=== PATIENT | female | born 1985 | race Caucasian/White ===

== ENCOUNTER 2016-09-24 15:19 | Emergency (ER) | payer MEDICARE, MEDICAID ==
[2016-09-24 16:19] VITALS: O2SAT 98
[2016-09-24] MEDS ORDERED: FLUCONAZOLE 100 MG TAB PO ONE (16:19)
--- NOTE | 2016-09-24 16:22 | ED.PDOC ---
History of Present Illness - General Chief Complaint: Skin/Abrasion/Tear Time Seen by Provider: 09/24/16 16:19 Source: patient Exam Limitations: no limitations - History of Present Illness Initial Comments: the patient is a 31-year-old female presenting to the emergency room secondary to perineal rash present for the last week to 2 weeks. She has been trying different topical remedies without much relief. She reports mild vaginal discharge. She has not been sexually active in 2 years. No history of HSV. Rash is mildly pruritic. Mild burning with hot water. Physical exam shows the rash to be quite extensive in the perineum. There did appear to be some small satellite lesions. Rash is not weeping at this time. No blisters. No evidence of abscess or deeper cellulitis. Vaginal discharge appears to be minimal. The patient is overweight. She denies being a diabetic. Timing/Duration: 1 week Severity: mild Improving Factors: nothing Worsening Factors: nothing Associated Symptoms: denies symptoms Allergies/Adverse Reactions: Allergies NO KNOWN ALLERGY Allergy (Verified 05/10/16 15:52) Home Medications: Ambulatory Orders Fluconazole 150 mg PO DAILY #3 tab 09/24/16 Naproxen 250 mg PO BID 09/24/16 Tramadol HCl 50 mg PO BID 09/24/16 Review of Systems - Review of Systems Constitutional: States: no symptoms reported EENTM: States: no symptoms reported Respiratory: States: no symptoms reported Cardiology: States: no symptoms reported Gastrointestinal/Abdominal: States: no symptoms reported Genitourinary: States: see HPI Musculoskeletal: States: no symptoms reported Skin: States: see HPI Neurological: States: no symptoms reported All other Systems: No Change from Baseline Past Medical History (General) - Patient Medical History Hx Seizures: No Hx Stroke: No Hx Dementia: No Hx Asthma: No Hx of COPD: No Hx Cardiac Disorders: No Hx Congestive Heart Failure: No Hx Pacemaker: No Hx Hypertension: No Hx Thyroid Disease: No Hx Diabetes: No Hx Gastroesophageal Reflux: Yes Hx Renal Disease: No Hx Cancer: No Hx of HIV: No Hx Hepatitis C: No Hx MRSA: No MRSA Source:: Wound Surgical History: cholecystectomy - Vaccination History Hx Tetanus, Diphtheria Vaccination: No Hx Influenza Vaccination: Yes Hx Pneumococcal Vaccination: No - Social History Hx Tobacco Use: No Hx Chewing Tobacco Use: No Hx Alcohol Use: No Hx Substance Use: No Hx Substance Use Treatment: No Hx Depression: No Feels Threatened In Home Enviroment: No Feels Threatened In a Relationship: No Hx Physical Abuse: No Hx Emotional Abuse: No Hx Suspected Abuse: No - Activities of Daily Living Hospice Agency (if applicable):: None - Female History Patient is a Female of Child Bearing Age (10 -59 yrs old): Yes Hx Last Menstrual Period: 05/10/14 Patient : No Family Medical History - Family History Mother Family History: Unknown Living Status: Unknown Hx Family;Other: adopted Physical Exam - Physical Exam General Appearance: Alert, Comfortable, No apparent distress Eye Exam: bilateral normal Ears, Nose, Throat: normal ENT inspection, normal pharynx Neck: full range of motion, supple, normal inspection Respiratory: chest non-tender, lungs clear, normal breath sounds, no respiratory distress, no accessory muscle use Cardiovascular/Chest: normal peripheral pulses, regular rate, rhythm, no edema Peripheral Pulses: radial,right: 2+, radial,left: 2+ Gastrointestinal/Abdominal: non tender, soft - morbidly obese Rectal Exam: deferred, other - perineum shows rashes described in history of present illness. Back Exam: normal inspection Extremity: normal range of motion, non-tender, normal inspection, no pedal edema , normal capillary refill Neurologic: alert, normal mood/affect, oriented x 3 Skin Exam: normal color - with the exception of the rash as described above Comments: Vital Signs - 24 hr 09/24/16 16:07 Temperature 97.8 F Pulse Rate [L 106 H Arm] Respiratory 18 Rate Blood Pressure 120/80 [L Arm] O2 Sat by Pulse 98 Oximetry Progress - Progress Progress: 09/24/16 16:23 the patient is a 31-year-old female presenting with what is most likely predominantly aching rash in the perineal area and lower body folds. There does appear at least to be some fungal component. She'll be placed on Diflucan for 3 days. She needs to obtain some topical Aquaphor and apply 2-3 times daily to the affected areas. Warnings are given for any worsening. She needs to follow-up with her primary care doctor later this week. Anticipate at least 2 weeks to clear completely. 09/24/16 16:25 Departure - Departure Clinical Impression: Candidal intertrigo Disposition: Discharge to Home or Self Care Condition: Fair Departure Forms: ED Discharge - Pt. Copy, Patient Portal Self Enrollment Instructions: DI for Rash Diet: regular diet Activity: increase activity as tolerated Referrals: Ras Alcala MD [Primary Care Provider] - 1-5 Days Prescriptions: Fluconazole 150 mg PO DAILY #3 tab Home Medications: Ambulatory Orders Fluconazole 150 mg PO DAILY #3 tab 09/24/16 Naproxen 250 mg PO BID 09/24/16 Tramadol HCl 50 mg PO BID 09/24/16 Additional Instructions: the patient is a 31-year-old female presenting with what is most likely predominantly aching rash in the perineal area and lower body folds. There does appear at least to be some fungal component. She'll be placed on Diflucan for 3 days. She needs to obtain some topical Aquaphor and apply 2-3 times daily to the affected areas. Warnings are given for any worsening. She needs to follow-up with her primary care doctor later this week. Anticipate at least 2 weeks to clear completely.
[2016-09-24 16:52] VITALS: BP 116/72; TEMP 97.2
== END 2016-09-24 16:51 | disposition home or self-care (01) ==
LOC: ER 15:19
DX: B37.2 Candidiasis of skin and nail (principal); K21.9 Gastro-esophageal reflux disease without esophagitis

== ENCOUNTER 2018-01-25 18:17 | Emergency (ER) | payer MEDICARE, MEDICAID ==
[2018-01-25 18:38] VITALS: BP 153/103; TEMP 98.2; O2SAT 96
--- NOTE | 2018-01-25 18:38 | ED.PDOC ---
History of Present Illness - General Chief Complaint: ENT Problem Stated Complaint: Sore throat, jaw pain, cough Time Seen by Provider: 01/25/18 18:19 Source: patient Exam Limitations: no limitations - History of Present Illness Initial Comments: the patient is a 32-year-old female presenting to the emergency room secondary to a sore throat along with a runny nose and a mild cough as well as bilateral jaw pain for the last 24-48 hours. No shortness of breath. No sick. Near syncope. No productive cough. No chest pain. Timing/Duration: 24 hours Severity: mild Worsening Factors: nothing Allergies/Adverse Reactions: Allergies NO KNOWN ALLERGY Allergy (Verified 05/10/16 15:52) Home Medications: Ambulatory Orders Fluconazole 150 mg PO DAILY #3 tab 09/24/16 Naproxen 250 mg PO BID 09/24/16 Tramadol HCl 50 mg PO BID 09/24/16 Review of Systems - Review of Systems Constitutional: States: malaise EENTM: States: nose congestion, throat pain Respiratory: States: cough Cardiology: States: no symptoms reported Gastrointestinal/Abdominal: States: no symptoms reported Genitourinary: States: no symptoms reported Musculoskeletal: States: no symptoms reported Skin: States: no symptoms reported Neurological: States: no symptoms reported Endocrine: States: no symptoms reported All other Systems: No Change from Baseline Past Medical History (General) - Patient Medical History Hx Seizures: No Hx Stroke: No Hx Dementia: No Hx Asthma: No Hx of COPD: No Hx Cardiac Disorders: No Hx Congestive Heart Failure: No Hx Pacemaker: No Hx Hypertension: No Hx Thyroid Disease: No Hx Diabetes: No Hx Gastroesophageal Reflux: Yes Hx Renal Disease: No Hx Cancer: No Hx of HIV: No Hx Hepatitis C: No Hx MRSA: No MRSA Source:: Wound Surgical History: other - Vaccination History Hx Tetanus, Diphtheria Vaccination: No Hx Influenza Vaccination: Yes Hx Pneumococcal Vaccination: No - Social History Hx Tobacco Use: No Hx Chewing Tobacco Use: No Hx Alcohol Use: No Hx Substance Use: No Hx Substance Use Treatment: No Hx Depression: No Hx Physical Abuse: No Hx Emotional Abuse: No Hx Suspected Abuse: No - Female History Hx Last Menstrual Period: 05/10/14 Patient : No Family Medical History - Family History Mother Family History: Unknown Living Status: Unknown Hx Family;Other: adopted Physical Exam - Physical Exam General Appearance: Alert, Comfortable, No apparent distress Eye Exam: bilateral normal Ears, Nose, Throat: hearing grossly normal, nasal congestion, pharyngeal erythema Neck: other - he does have mild anterior cervical chain lymphadenopathy. Respiratory: no respiratory distress, no accessory muscle use Cardiovascular/Chest: normal peripheral pulses, no edema Peripheral Pulses: radial,right: 2+, radial,left: 2+ Gastrointestinal/Abdominal: other - obese Rectal Exam: deferred Extremity: normal range of motion, non-tender, normal capillary refill Neurologic: medical scheduler II-XII nml as tested, alert, normal mood/affect, oriented x 3 Skin Exam: normal color Comments: Vital Signs - 24 hr 01/25/18 18:31 Temperature 98.2 F Pulse Rate [ 94 H left brachial] Respiratory 20 Rate Blood Pressure 153/103 [left brachial] O2 Sat by Pulse 96 Oximetry Progress - Progress Progress: 01/25/18 18:38 the patient's a 32-year-old female presenting with what appears to be a viral rhinopharyngitis. Motrin and Chloraseptic can help her with pain. She needs to keep herself well-hydrated. She should expect symptoms to last another couple of days. ER warnings were given for any significant worsening. Keep routine follow-up with primary care doctor otherwise. Departure - Departure Clinical Impression: Rhinopharyngitis Disposition: Discharge to Home or Self Care Condition: Fair Departure Forms: ED Discharge - Pt. Copy, Patient Portal Self Enrollment Instructions: DI for Common Cold Diet: regular diet Activity: increase activity as tolerated Referrals: Ras Alcala MD [Primary Care Provider] - 1-2 Weeks Home Medications: Ambulatory Orders Fluconazole 150 mg PO DAILY #3 tab 09/24/16 Naproxen 250 mg PO BID 09/24/16 Tramadol HCl 50 mg PO BID 09/24/16 Additional Instructions: the patient's a 32-year-old female presenting with what appears to be a viral rhinopharyngitis. Motrin and Chloraseptic can help her with pain. She needs to keep herself well-hydrated. She should expect symptoms to last another couple of days. ER warnings were given for any significant worsening. Keep routine follow-up with primary care doctor otherwise.
[2018-01-25] MEDS ORDERED: IBUPROFEN 200 MG TAB PO ONE (18:44)
== END 2018-01-25 18:54 | disposition home or self-care (01) ==
LOC: ER 18:17
DX: J00 Acute nasopharyngitis [common cold] (principal); K21.9 Gastro-esophageal reflux disease without esophagitis

== ENCOUNTER → 2018-03-19 | Outpatient (CLI) | payer OTHER, MEDICAID | LOC: GMAE 17:09 | PROVIDERS: ATTEND Family Medicine | DX: G25.81 Restless legs syndrome (principal) ==

== ENCOUNTER 2018-05-15 16:17 | Emergency (ER) | payer MEDICARE, MEDICAID ==
--- NOTE | 2018-05-15 16:42 | ED.PDOC ---
History of Present Illness - General Chief Complaint: General Time Seen by Provider: 05/15/18 16:35 Source: patient Exam Limitations: no limitations - History of Present Illness Initial Comments: SHE IS HERE BECAUSE OF PELVIC CRAMPS AND DESIRES A TEST. HER LMP WAS 04/29, NORMAL AND EXPECTED PERIOD. Timing/Duration: 1 week Severity: mild Improving Factors: nothing Worsening Factors: nothing Associated Symptoms: denies symptoms Allergies/Adverse Reactions: Allergies NO KNOWN ALLERGY Allergy (Verified 05/10/16 15:52) Home Medications: Ambulatory Orders Fluconazole 150 mg PO DAILY #3 tab 09/24/16 Naproxen 250 mg PO BID 09/24/16 Tramadol HCl 50 mg PO BID 09/24/16 Naproxen [Naprosyn] 250 mg PO BID #10 tab 05/15/18 Review of Systems - Review of Systems Constitutional: States: no symptoms reported EENTM: States: no symptoms reported Respiratory: States: no symptoms reported Cardiology: States: no symptoms reported Gastrointestinal/Abdominal: States: no symptoms reported Genitourinary: States: other - PELVIC CRAMPS Musculoskeletal: States: no symptoms reported Skin: States: no symptoms reported Neurological: States: no symptoms reported Endocrine: States: no symptoms reported Hematologic/Lymphatic: States: no symptoms reported All other Systems: Reviewed and Negative Past Medical History (General) - Patient Medical History Hx Seizures: No Hx Stroke: No Hx Dementia: No Hx Asthma: No Hx of COPD: No Hx Cardiac Disorders: No Hx Congestive Heart Failure: No Hx Pacemaker: No Hx Hypertension: No Hx Thyroid Disease: No Hx Diabetes: No Hx Gastroesophageal Reflux: Yes Hx Renal Disease: No Hx Cancer: No Hx of HIV: No Hx Hepatitis C: No Hx MRSA: No MRSA Source:: Wound - Vaccination History Hx Tetanus, Diphtheria Vaccination: No Hx Influenza Vaccination: No Hx Pneumococcal Vaccination: No - Social History Hx Tobacco Use: No Hx Chewing Tobacco Use: No Hx Alcohol Use: No Hx Substance Use: No Hx Substance Use Treatment: No Hx Depression: No Hx Physical Abuse: No Hx Emotional Abuse: No Hx Suspected Abuse: No - Female History Patient is a Female of Child Bearing Age (10 -59 yrs old): Yes Hx Last Menstrual Period: 05/10/14 Patient : No Family Medical History - Family History Mother Family History: Unknown Living Status: Unknown Hx Family;Other: adopted Physical Exam - Physical Exam General Appearance: Alert, Well Developed, Well Hydrated Eye Exam: bilateral normal Ears, Nose, Throat: hearing grossly normal Neck: non-tender, full range of motion, supple Respiratory: chest non-tender, lungs clear, no respiratory distress, no accessory muscle use Cardiovascular/Chest: normal peripheral pulses, no edema, no gallop, no JVD, no murmur Gastrointestinal/Abdominal: soft, no organomegaly, no pulsatile mass, other - NO GUARDING AND NO REBOUND Rectal Exam: deferred Back Exam: normal inspection Extremity: normal range of motion Neurologic: alert, normal mood/affect, oriented x 3 Skin Exam: normal color Lymphatic: no adenopathy Progress - Results/Orders Results/Orders: TEST IS NEGATIVE. Departure - Departure Clinical Impression: Pelvic cramping Time of Disposition: 17:19 Disposition: Discharge to Home or Self Care Departure Forms: ED Discharge - Pt. Copy, Patient Portal Self Enrollment Diet: resume usual diet Referrals: CAROL KENT MD [Primary Care Provider] - 1-2 Weeks Prescriptions: Naproxen [Naprosyn] 250 mg PO BID #10 tab Home Medications: Ambulatory Orders Fluconazole 150 mg PO DAILY #3 tab 09/24/16 Naproxen 250 mg PO BID 09/24/16 Tramadol HCl 50 mg PO BID 09/24/16 Naproxen [Naprosyn] 250 mg PO BID #10 tab 05/15/18
[2018-05-15 16:48] VITALS: BP 144/95; TEMP 97.2; O2SAT 98
== END 2018-05-15 17:29 | disposition home or self-care (01) ==
LOC: ER 16:17
DX: R10.2 Pelvic and perineal pain (principal); K21.9 Gastro-esophageal reflux disease without esophagitis; Z32.02 Encounter for pregnancy test, result negative

== ENCOUNTER 2018-05-25 15:22 | Emergency (ER) | payer MEDICARE, MEDICAID ==
--- NOTE | 2018-05-25 17:25 | RAD ---
EXAM DESCRIPTION: Facial Bones CLINICAL HISTORY: 32 years Female, FALL COMPARISON: None. TECHNIQUE: Ramirez, AP, bilateral lateral views FINDINGS: Right nasal septal deviation. No fractures identified. No sinus opacification. IMPRESSION: No fractures identified. If more sensitive imaging is needed, computed tomography would be useful Electronically signed by: Navid Bach 05/25/2018 5:24 PM CDT
--- NOTE | 2018-05-25 17:48 | ED.PDOC ---
History of Present Illness - General Chief Complaint: Trauma Stated Complaint: fall Time Seen by Provider: 05/25/18 17:47 Source: patient Exam Limitations: no limitations - History of Present Illness Initial Comments: Jennifer New 32 y/o female stated slipped and fell off her front porch today hitting left side of her face on the concrete noted swelling right side face with dull pain.No LOC,no diplopia,no blurry vision,remembers incident. Denies neck,shoulder hip pains;no nosebleeds Occurred: just prior to arrival Severity: moderate Pain Location: face Method of Injury: fall Improving Factors: nothing Worsening Factors: nothing Loss of Consciousness: no loss of consciousness Associated Symptoms (Fall): denies symptoms Allergies/Adverse Reactions: Allergies NO KNOWN ALLERGY Allergy (Verified 05/10/16 15:52) Home Medications: Ambulatory Orders Fluconazole 150 mg PO DAILY #3 tab 09/24/16 Naproxen 250 mg PO BID 09/24/16 Tramadol HCl 50 mg PO BID 09/24/16 Naproxen [Naprosyn] 250 mg PO BID #10 tab 05/15/18 Review of Systems - Review of Systems Constitutional: States: no symptoms reported EENTM: States: see HPI Respiratory: States: no symptoms reported Cardiology: States: no symptoms reported Gastrointestinal/Abdominal: States: no symptoms reported Genitourinary: States: no symptoms reported Musculoskeletal: States: no symptoms reported Skin: States: no symptoms reported Neurological: States: no symptoms reported Past Medical History (General) - Patient Medical History Hx Seizures: No Hx Stroke: No Hx Dementia: No Hx Asthma: No Hx of COPD: No Hx Cardiac Disorders: No Hx Congestive Heart Failure: No Hx Pacemaker: No Hx Hypertension: No Hx Thyroid Disease: No Hx Diabetes: No Hx Gastroesophageal Reflux: Yes Hx Renal Disease: No Hx Cancer: No Hx of HIV: No Hx Hepatitis C: No Hx MRSA: No MRSA Source:: Wound Surgical History: cholecystectomy, other - btl,bilateral fimbriectomy - Vaccination History Hx Tetanus, Diphtheria Vaccination: No Hx Influenza Vaccination: No Hx Pneumococcal Vaccination: No - Social History Hx Tobacco Use: No Hx Chewing Tobacco Use: No Hx Alcohol Use: No Hx Substance Use: No Hx Substance Use Treatment: No Hx Depression: No Hx Physical Abuse: No Hx Emotional Abuse: No Hx Suspected Abuse: No - Female History Hx Last Menstrual Period: 05/10/14 Patient : No Family Medical History - Family History Mother Family History: Unknown Living Status: Unknown Hx Family;Other: adopted Physical Exam - Physical Exam General Appearance: Alert, Comfortable, No apparent distress Head Injury: no evidence of injury, other - moderate swelling right side cheek Eye Exam: bilateral normal, bilateral other - clear eyegrounds bilaterally; PERRL.EOMI ENT Exam: hearing grossly normal, no evidence of ENT injury, no dental injury Neck Exam: non-tender, full range of motion, normal alignment, normal inspection Cardiovascular/Respiratory: regular rate, rhythm, no M/R/G, normal peripheral pulses, no respiratory distress Gastrointestinal/Abdominal: non tender, soft, no organomegaly Extremity Exam: no evidence of injury, normal range of motion, non-tender, no pedal edema, pelvis stable Neurologic: no motor/sensory deficits, alert, oriented x 3 Skin Exam: normal color, warm/dry - [place] Coma Score Best Eye Response ([place]): (4) open spontaneously Best Verbal Response ([place]): (5) oriented Best Motor Response ([place]): (6) obeys commands [place] Total: 15 Progress - EKG/XRAY/CT XRAY: facial bones - no fractures Departure - Departure Clinical Impression: Fall at home Qualifiers: Encounter type: initial encounter Qualified Code(s): W19.XXXA - Unspecified fall, initial encounter; Y92.009 - Unspecified place in unspecified non- institutional (private) residence as the place of occurrence of the external cause; Y92.009 - Unspecified place in unspecified non-institutional (private) residence as the place of occurrence of the external cause Contusion of face Qualifiers: Encounter type: initial encounter Qualified Code(s): S00.83XA - Contusion of other part of head, initial encounter Time of Disposition: 18:01 Disposition: Discharge to Home or Self Care Condition: Fair Departure Forms: ED Discharge - Pt. Copy, Patient Portal Self Enrollment Instructions: Contusion (DC), Taking Care of Bruises Referrals: CAROL KENT MD [Primary Care Provider] - 1-2 Weeks Home Medications: Ambulatory Orders Fluconazole 150 mg PO DAILY #3 tab 09/24/16 Naproxen 250 mg PO BID 09/24/16 Tramadol HCl 50 mg PO BID 09/24/16 Naproxen [Naprosyn] 250 mg PO BID #10 tab 05/15/18 Additional Instructions: continue with current medications;Ice pack to affected area 10 minutes 3 x a day during waking hours only until better.May take Aleve (over the counter)1-2 tablets am/pm for pain as needed
[2018-05-25] MEDS ORDERED: IBUPROFEN 200 MG TAB PO ONE (18:08)
[2018-05-25 18:09] VITALS: BP 118/86; TEMP 97.5; O2SAT 99
== END 2018-05-25 18:10 | disposition home or self-care (01) ==
LOC: ER 15:22
DX: S00.83XA Contusion of other part of head, initial encounter (principal); K21.9 Gastro-esophageal reflux disease without esophagitis; Z79.899 Other long term (current) drug therapy; W01.0XXA Fall on same level from slipping, tripping and stumbling without subsequent striking against object, initial encounter; Y92.008 Other place in unspecified non-institutional (private) residence as the place of occurrence of the external cause

== ENCOUNTER 2018-05-27 09:46 | Emergency (ER) | payer OTHER, MEDICAID ==
[2018-05-27 10:29] VITALS: TEMP 96.7; O2SAT 100
[2018-05-27] MEDS ORDERED: CLINDAMYCIN HCL CAP 150 MG CAP PO ONE (10:32)
[2018-05-27] MEDS ORDERED: KETOROLAC TROMETHAMINE INJ 60 MG/2 ML VIAL IM ONE (10:32)
--- NOTE | 2018-05-27 10:36 | ED.PDOC ---
History of Present Illness - General Chief Complaint: Dental/Mouth Stated Complaint: R facial swelling Time Seen by Provider: 05/27/18 10:32 Source: patient Exam Limitations: no limitations - History of Present Illness Initial Comments: patient comes in todaywith worsening of right-sided tooth pain with swelling of her face radiating up to the inside of her cheek. Patient states she's had tooth problems for a long time but never had problems with the specific side. On Saturday she noticed swelling with redness and heat felt at her cheek. She has severe tooth pain that [id number] medication is not helping. Patient has not yet seen a dentist for it. She denies any fever or chills but has had some nausea but no emesis. She otherwise healthy and has no past medical history. She has no known drug allergies and she does not smoke, drink, or take illicit substances. She takes no [id number] medications or supplements. Timing/Duration: other EENT Location: dental Prearrival Treatment: over the counter meds Improving Factors: nothing Worsening Factors: eating Associated Symptoms: other - nausea Allergies/Adverse Reactions: Allergies NO KNOWN ALLERGY Allergy (Verified 05/10/16 15:52) Home Medications: Ambulatory Orders Tramadol HCl 50 mg PO BID 09/24/16 Naproxen [Naprosyn] 250 mg PO BID #10 tab 05/15/18 Clindamycin HCl 300 mg PO TID #21 cap 05/27/18 Esomeprazole Magnesium [Esomeprazole Magnesium] 40 mg PO DAILY 05/27/18 Meloxicam [Meloxicam] 15 mg PO DAILY 05/27/18 Pramipexole Dihydrochloride [Pramipexole Dihydrochlori] 0.25 mg PO BID 05/27/18 Review of Systems - Review of Systems Constitutional: States: no symptoms reported. Denies: chills, fever, weakness EENTM: States: see HPI Respiratory: States: no symptoms reported Cardiology: States: no symptoms reported Gastrointestinal/Abdominal: States: nausea Past Medical History (General) - Patient Medical History Hx Seizures: No Hx Stroke: No Hx Dementia: No Hx Asthma: No Hx of COPD: No Hx Cardiac Disorders: No Hx Congestive Heart Failure: No Hx Pacemaker: No Hx Hypertension: No Hx Thyroid Disease: No Hx Diabetes: No Hx Gastroesophageal Reflux: Yes Hx Renal Disease: No Hx Cancer: No Hx of HIV: No Hx Hepatitis C: No Hx MRSA: No MRSA Source:: Wound - Vaccination History Hx Tetanus, Diphtheria Vaccination: No Hx Influenza Vaccination: No Hx Pneumococcal Vaccination: No - Social History Hx Tobacco Use: No Hx Chewing Tobacco Use: No Hx Alcohol Use: No Hx Substance Use: No Hx Substance Use Treatment: No Hx Depression: No Hx Physical Abuse: No Hx Emotional Abuse: No Hx Suspected Abuse: No - Female History Hx Last Menstrual Period: 05/10/14 Patient : No Family Medical History - Family History Mother Family History: Unknown Living Status: Unknown Hx Family;Other: adopted Physical Exam - Physical Exam General Appearance: Alert, Comfortable Eye Exam: bilateral normal Ear Exam: bilateral ear: auricle normal, canal normal, TM normal Throat Exam: other - broken teeth noted on the upper and lower right side with cavitary lesions bilaterally. The second molar on the right side superiorly has redness but no fluctuance and no purulence. Tenderness to palpation with reproduction of pain. Patient does have some swelling of the right anterior cervical lymph nodes and the cheek without fluctuance or point tenderness. Neck: non-tender, full range of motion, supple Cardiovascular/Respiratory: regular rate, rhythm, no M/R/G, normal peripheral pulses, normal breath sounds, no respiratory distress Abdominal Exam: other - normal bowel sounds Progress - Progress Progress: discussed with patient that although I do not feel any fluctuance she may have an early dental abscess based on a exam and presentation. We started her on clindamycin and asked her to see a dentist. Toradol was given here. 05/27/18 10:39 Departure - Departure Clinical Impression: Dental abscess Disposition: Discharge to Home or Self Care Condition: Good Departure Forms: ED Discharge - Pt. Copy, Patient Portal Self Enrollment Referrals: CAROL KENT MD [Primary Care Provider] - 1-2 Weeks Prescriptions: Clindamycin HCl 300 mg PO TID #21 cap Home Medications: Ambulatory Orders Tramadol HCl 50 mg PO BID 09/24/16 Naproxen [Naprosyn] 250 mg PO BID #10 tab 05/15/18 Clindamycin HCl 300 mg PO TID #21 cap 05/27/18 Esomeprazole Magnesium [Esomeprazole Magnesium] 40 mg PO DAILY 05/27/18 Meloxicam [Meloxicam] 15 mg PO DAILY 05/27/18 Pramipexole Dihydrochloride [Pramipexole Dihydrochlori] 0.25 mg PO BID 05/27/18 Additional Instructions: follow-up with dentist in 2-3 days. Return to emergency room for increasing swelling,temperature greater than 101, or worsening of symptoms. May take over- the-counter medication but she was given at type of NSAID here and so should wait at least 6 hours before using that class of medications including her naproxen again. Patient may take Tylenol however.
[2018-05-27 10:52] VITALS: BP 141/105
== END 2018-05-27 10:52 | disposition home or self-care (01) ==
LOC: ER 09:46
DX: K04.7 Periapical abscess without sinus (principal); K02.9 Dental caries, unspecified; S02.5XXA Fracture of tooth (traumatic), initial encounter for closed fracture; K21.9 Gastro-esophageal reflux disease without esophagitis; X58.XXXA Exposure to other specified factors, initial encounter; Y92.9 Unspecified place or not applicable

== ENCOUNTER 2018-06-02 12:54 | Emergency (ER) | payer OTHER, MEDICAID ==
[2018-06-02 13:29] VITALS: TEMP 96.3
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
[2018-06-02 17:32] VITALS: BP 129/79; O2SAT 99
== END 2018-06-02 17:18 | disposition home or self-care (01) ==
LOC: ER 12:54
DX: S00.11XA Contusion of right eyelid and periocular area, initial encounter (principal); H11.31 Conjunctival hemorrhage, right eye; K02.9 Dental caries, unspecified; K21.9 Gastro-esophageal reflux disease without esophagitis; Z79.899 Other long term (current) drug therapy; Y04.0XXA Assault by unarmed brawl or fight, initial encounter; Y07.03 Male partner, perpetrator of maltreatment and neglect; Y92.009 Unspecified place in unspecified non-institutional (private) residence as the place of occurrence of the external cause

== ENCOUNTER 2018-06-11 22:14 | Emergency (ER) | payer OTHER, MEDICAID ==
--- NOTE | 2018-06-11 22:42 | ED.PDOC ---
History of Present Illness - General Chief Complaint: Skin/Abrasion/Tear Stated Complaint: rash on arm and blister on lip Time Seen by Provider: 06/11/18 22:39 Source: patient Exam Limitations: no limitations - History of Present Illness Initial Comments: rash on both forearms x 4 days with itching Timing/Duration: intermittent Severity: mild Location: extremities Improving Factors: nothing Worsening Factors: nothing Associated Symptoms: itching, rash Allergies/Adverse Reactions: Allergies NO KNOWN ALLERGY Allergy (Verified 05/10/16 15:52) Home Medications: Ambulatory Orders Tramadol HCl 50 mg PO BID 09/24/16 Naproxen [Naprosyn] 250 mg PO BID #10 tab 05/15/18 Clindamycin HCl 300 mg PO TID #21 cap 05/27/18 Esomeprazole Magnesium [Esomeprazole Magnesium] 40 mg PO DAILY 05/27/18 Meloxicam [Meloxicam] 15 mg PO DAILY 05/27/18 Pramipexole Dihydrochloride [Pramipexole Dihydrochlori] 0.25 mg PO BID 05/27/18 Mometasone Furoate [Elocon] 0.1 % EX QAM #15 gm 06/11/18 hydrOXYzine HCl [Atarax] 25 mg PO Q6HR PRN #15 tab 06/11/18 Review of Systems - Review of Systems Constitutional: States: no symptoms reported. Denies: chills, fever EENTM: Denies: nose congestion Respiratory: Denies: cough Cardiology: States: no symptoms reported Gastrointestinal/Abdominal: States: no symptoms reported Genitourinary: States: no symptoms reported Musculoskeletal: Denies: no symptoms reported Skin: States: rash Neurological: Denies: numbness, paresthesia Endocrine: States: no symptoms reported Hematologic/Lymphatic: States: no symptoms reported Past Medical History (General) - Patient Medical History Hx Seizures: No Hx Stroke: No Hx Dementia: No Hx Asthma: No Hx of COPD: No Hx Cardiac Disorders: No Hx Congestive Heart Failure: No Hx Pacemaker: No Hx Hypertension: No Hx Thyroid Disease: No Hx Diabetes: No Hx Gastroesophageal Reflux: Yes Hx Renal Disease: No Hx Cancer: No Hx of HIV: No Hx Hepatitis C: No Hx MRSA: No MRSA Source:: Wound - Vaccination History Hx Tetanus, Diphtheria Vaccination: No Hx Influenza Vaccination: No Hx Pneumococcal Vaccination: No - Social History Hx Tobacco Use: No Hx Chewing Tobacco Use: No Hx Alcohol Use: No Hx Substance Use: No Hx Substance Use Treatment: No Hx Depression: No Hx Physical Abuse: No Hx Emotional Abuse: No Hx Suspected Abuse: No - Female History Hx Last Menstrual Period: 05/31/18 Patient : No Family Medical History - Family History Mother Family History: Unknown Living Status: Unknown Hx Family;Other: adopted Physical Exam - Physical Exam General Appearance: Alert Eyes, Ears, Nose, Throat Exam: PERRL/EOMI, TMs normal, pharynx normal Neck: non-tender, full range of motion, normal inspection Skin Exam: warm/dry, normal color Skin Problem Location: other - both forearms Skin Character: papules, vesicular Lymphatic: no adenopathy Departure - Departure Clinical Impression: Atopic dermatitis Qualifiers: Atopic dermatitis type: atopic neurodermatitis Qualified Code(s): L20.81 - Atopic neurodermatitis Disposition: Discharge to Home or Self Care Condition: Fair Departure Forms: ED Discharge - Pt. Copy, Patient Portal Self Enrollment Referrals: CAROL KENT MD [Primary Care Provider] - 1-2 Weeks Prescriptions: hydrOXYzine HCl [Atarax] 25 mg PO Q6HR PRN #15 tab PRN Reason: For Itching Mometasone Furoate [Elocon] 0.1 % EX QAM #15 gm Home Medications: Ambulatory Orders Tramadol HCl 50 mg PO BID 09/24/16 Naproxen [Naprosyn] 250 mg PO BID #10 tab 05/15/18 Clindamycin HCl 300 mg PO TID #21 cap 05/27/18 Esomeprazole Magnesium [Esomeprazole Magnesium] 40 mg PO DAILY 05/27/18 Meloxicam [Meloxicam] 15 mg PO DAILY 05/27/18 Pramipexole Dihydrochloride [Pramipexole Dihydrochlori] 0.25 mg PO BID 05/27/18 Mometasone Furoate [Elocon] 0.1 % EX QAM #15 gm 06/11/18 hydrOXYzine HCl [Atarax] 25 mg PO Q6HR PRN #15 tab 06/11/18
[2018-06-11 22:44] VITALS: BP 137/87; TEMP 97.3; O2SAT 98
[2018-06-11] MEDS ORDERED: hydrOXYzine HCl 25 MG TAB PO ONE (23:24)
== END 2018-06-11 23:32 | disposition home or self-care (01) ==
LOC: ER 22:14
DX: L20.81 Atopic neurodermatitis (principal); K21.9 Gastro-esophageal reflux disease without esophagitis; Z79.899 Other long term (current) drug therapy

== ENCOUNTER 2018-06-20 16:02 | Emergency (ER) | payer OTHER, MEDICAID ==
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
--- NOTE | 2018-06-20 17:01 | CT ---
EXAM DESCRIPTION: Head CLINICAL HISTORY: HEAD INJURY COMPARISON: Previous CT of the brain May 02, 2007 TECHNIQUE: Noncontrast head CT was performed with routine protocol. FINDINGS: Normal mendez-white matter differentiation. Ventricles and sulci are normal for age. No high density hemorrhage, focal edema or shift of the midline. No sulcal effacement. Normal orbital contents. Basilar cisterns appear clear. Intact calvarium with no fracture or lytic lesion. Normal aeration of tympanic cavities and mastoid air cells. No fluid levels in the paranasal sinuses. Skull base appears intact. Symmetrical internal auditory canals. Coronal and sagittal reformatted images confirm the findings. No change compared to previous study. IMPRESSION: No acute intracranial pathologic process. This exam was performed according to our departmental dose-optimization program, which includes automated exposure control, adjustment of the mA and/or kV according to patient size and/or use of iterative reconstruction technique. Total DLP equals 859.97 mGycm. Electronically signed by: Braxton Bose MD 06/20/2018 4:59 PM CDT
[2018-06-20 17:35] VITALS: BP 120/88; O2SAT 98
== END 2018-06-20 17:16 | disposition home or self-care (01) ==
LOC: ER 16:02
DX: G44.319 Acute post-traumatic headache, not intractable (principal); K21.9 Gastro-esophageal reflux disease without esophagitis; Z79.899 Other long term (current) drug therapy

== ENCOUNTER → 2018-07-08 | Outpatient (CLI) | payer OTHER, MEDICAID ==
--- NOTE | 2018-07-08 17:23 | MRI ---
EXAM DESCRIPTION: Brain w/o Contrast: MRI. CLINICAL HISTORY: HEADACHE COMPARISON: None. TECHNIQUE: Multiplanar, high-field MRI unit, multiple diffusion sequences, multiple conventional sequences without contrast. FINDINGS: Normal FLAIR and T2-weighted signal in the periventricular white matter and mendez-white matter junctions of the cerebral hemispheres. . No hemorrhage, no cerebral edema, no diffusion restriction. Normal signal in the bilateral basal ganglia. Normal signal in the brainstem and cerebellar hemispheres. No hemorrhage, no cerebral edema, no diffusion restriction.. Concordance of the diffusion and non-diffusion sequences with no diffusion restriction. Cortical sulci, ventricles, and other CSF spaces, and the subdural spaces are normally configured for the patient's age. No effacement or displacement. No midline shift. No extra-axial hemorrhage. Normal flow signal void in the major vessels of the lummi Panchal, and the venous sinuses. IACs are symmetric bilaterally. Minimal fluid signal in the inferior right mastoid air cells. No mass effect in the bilateral cerebellopontine angles. Pituitary gland occupies most of the sella. Base of the cerebellar tonsils is at the level of the foramen magnum. Minimal mucoperiosteal thickening in the paranasal sinuses. Minimal left septal deviation.. The bony calvarium is intact. IMPRESSION: 1. Unremarkable MRI scan of the brain with no intra-axial or extra-axial hemorrhage. No cerebral edema or mass effect. Normal noncontrast MRI diffusion scan diffusion with no evidence of acute or subacute infarction. 2. 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 Chronic paranasal sinus findings.. Electronically signed by: Freddy Kapoor MD 07/08/2018 5:21 PM CDT
== END ==
LOC: MRI 08:00
PROVIDERS: ATTEND Family Medicine
DX: R51 Headache (principal)

== ENCOUNTER → 2018-07-17 | Outpatient (CLI) | payer OTHER, MEDICAID ==
--- NOTE | 2018-07-17 14:17 | MRI ---
Study: MRI of the Right Knee. Indication: PAIN IN RIGHT KNEE Technique: Multiplanar, multi sequence MRI of the right knee was obtained without intravenous contrast. Comparison: None. Findings: ACL, PCL, and lateral collateral ligament complex intact. MCL is lax and bowed indicating sequela of a remote MCL sprain. No acute tear. Scattered degenerative signal change medial meniscus without tear. Lateral meniscus intact. Areas of grade 1 and 2 chondral thinning medial and lateral knee compartments. Low-grade tendinosis quadriceps tendon insertion. Patellar tendon intact. Trace lateral patellar tilt and subluxation with edema at the superolateral aspect Hoffa's fat pad. TT-TG distance measures 11 mm. Extensive subchondral marrow edema throughout the lateral and midline femoral trochlea. At their junction there is a suspected 9 mm craniocaudal by 5 mm transverse site of grade 3/4 chondral delamination and surface irregularity. Adjacent grade 2 and 3 chondrosis inferior margin lateral patellar facet noted. Moderate size knee effusion. No acute fracture. Impression: Mild degenerative signal change medial meniscus without tear. Remote MCL sprain. Grade 1 and 2 chondral thinning medial and lateral knee compartments. Low-grade tendinosis quadriceps tendon insertion. Subtle findings of patellofemoral maltracking. Grade 3/4 chondrosis lateral/midline femoral trochlea as well as grade 2-3 chondrosis lateral patellar facet. Moderate size knee effusion. Electronically signed by: Porfirio Bartholomew MD 07/17/2018 2:15 PM [facility]
== END ==
LOC: MRI 09:00
PROVIDERS: ATTEND Family Medicine
DX: S83.419A Sprain of medial collateral ligament of unspecified knee, initial encounter (principal); S76.111A Strain of right quadriceps muscle, fascia and tendon, initial encounter

== ENCOUNTER → 2018-07-24 | Outpatient (CLI) | payer OTHER, MEDICAID | LOC: GMAHI 16:55 | PROVIDERS: ATTEND Nurse Practitioner Family | DX: R00.0 Tachycardia, unspecified (principal); J02.9 Acute pharyngitis, unspecified ==

== ENCOUNTER 2018-08-08 12:20 | Emergency (ER) | payer OTHER, MEDICAID ==
[2018-08-08 12:43] VITALS: TEMP 99.3; O2SAT 98
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
--- NOTE | 2018-08-08 14:08 | RAD ---
EXAM DESCRIPTION: Knee,Left 2 or More Views CLINICAL HISTORY: FALL WITH PAIN COMPARISON: None. TECHNIQUE: 2 views left FINDINGS: Mild lateral femoral and tibial osteophyte formation is observed. No joint effusion is seen. No fracture is detected. IMPRESSION: Mild degenerative changes are observed. No fracturing is detected. Electronically signed by: Kain Hall MD 08/08/2018 2:07 PM [facility]
[2018-08-08 14:29] VITALS: BP 120/79
== END 2018-08-08 14:29 | disposition home or self-care (01) ==
LOC: ER 12:20
DX: S80.02XA Contusion of left knee, initial encounter (principal); G43.109 Migraine with aura, not intractable, without status migrainosus; R55 Syncope and collapse; X58.XXXA Exposure to other specified factors, initial encounter

== ENCOUNTER 2018-08-13 07:08 | Emergency (ER) | payer OTHER, MEDICAID ==
[2018-08-13 07:23] VITALS: BP 119/82; TEMP 97.6
--- NOTE | 2018-08-13 07:31 | ED.PDOC ---
History of Present Illness - General Chief Complaint: General Time Seen by Provider: 08/13/18 07:28 Source: patient, RN notes reviewed Exam Limitations: no limitations - History of Present Illness Initial Comments: LEFT KNEE PAIN, ONSET SEVERAL WEEKS AGO AFTER A FALL. SHE SEES DR LUX AND ON IBUPROFEN, NOT BETTER. HAS HAD THE KNEE XDS-RAYED, NO FRACTURES. Timing/Duration: other - SEVERAL WEEKS Severity: moderate Improving Factors: nothing Associated Symptoms: denies symptoms Allergies/Adverse Reactions: Allergies NO KNOWN ALLERGY Allergy (Verified 05/10/16 15:52) Home Medications: Ambulatory Orders Clindamycin HCl 300 mg PO TID #21 cap 05/27/18 Esomeprazole Magnesium [Esomeprazole Magnesium] 40 mg PO DAILY 05/27/18 Pramipexole Dihydrochloride [Pramipexole Dihydrochlori] 0.25 mg PO BEDTIME 05/27 Amitriptyline HCl [Elavil] 50 mg PO BEDTIME 08/08/18 Ibuprofen 800 mg PO TID PRN 08/08/18 Pantoprazole Sodium 40 mg PO DAILY 08/08/18 Sumatriptan Succinate [Imitrex] 25 mg PO TID PRN 08/08/18 Topiramate 50 mg PO DAILY 08/08/18 predniSONE 20 mg PO DAILY 5 Days tab 08/13/18 Review of Systems - Review of Systems Constitutional: States: no symptoms reported EENTM: States: no symptoms reported Respiratory: States: no symptoms reported Cardiology: States: no symptoms reported Gastrointestinal/Abdominal: States: no symptoms reported Genitourinary: States: no symptoms reported Musculoskeletal: States: joint pain Skin: States: no symptoms reported Neurological: States: no symptoms reported Endocrine: States: no symptoms reported Hematologic/Lymphatic: States: no symptoms reported Past Medical History (General) - Patient Medical History Hx Seizures: No Hx Stroke: No Hx Dementia: No Hx Asthma: No Hx of COPD: No Hx Cardiac Disorders: No Hx Congestive Heart Failure: No Hx Pacemaker: No Hx Hypertension: No Hx Thyroid Disease: No Hx Diabetes: No Hx Gastroesophageal Reflux: Yes Hx Renal Disease: No Hx Cancer: No Hx of HIV: No Hx Hepatitis C: No Hx MRSA: No MRSA Source:: Wound - Vaccination History Hx Tetanus, Diphtheria Vaccination: No Hx Influenza Vaccination: Yes Hx Pneumococcal Vaccination: No - Social History Hx Tobacco Use: No Hx Chewing Tobacco Use: No Hx Alcohol Use: No Hx Substance Use: No Hx Substance Use Treatment: No Hx Depression: No Hx Physical Abuse: No Hx Emotional Abuse: No Hx Suspected Abuse: No - Female History Hx Last Menstrual Period: 05/31/18 Patient : No Family Medical History - Family History Mother Family History: Unknown Living Status: Unknown Hx Family;Other: adopted Physical Exam - Physical Exam General Appearance: Alert, No apparent distress Neck: full range of motion, supple Respiratory: lungs clear Cardiovascular/Chest: regular rate, rhythm, no edema Gastrointestinal/Abdominal: normal bowel sounds, non tender, soft Back Exam: normal inspection, no CVA tenderness, no vertebral tenderness Extremity: normal inspection, no calf tenderness Skin Exam: normal color Lymphatic: no adenopathy Departure - Departure Clinical Impression: Contusion of knee, left Qualifiers: Encounter type: subsequent encounter Qualified Code(s): S80.02XD - Contusion of left knee, subsequent encounter Time of Disposition: 07:33 Disposition: Discharge to Home or Self Care Departure Forms: ED Discharge - Pt. Copy, Patient Portal Self Enrollment Diet: resume usual diet Activity: increase activity as tolerated Referrals: CAROL KENT MD [Primary Care Provider] - 1-2 Weeks Prescriptions: predniSONE 20 mg PO DAILY 5 Days tab Home Medications: Ambulatory Orders Clindamycin HCl 300 mg PO TID #21 cap 05/27/18 Esomeprazole Magnesium [Esomeprazole Magnesium] 40 mg PO DAILY 05/27/18 Pramipexole Dihydrochloride [Pramipexole Dihydrochlori] 0.25 mg PO BEDTIME 05/27 Amitriptyline HCl [Elavil] 50 mg PO BEDTIME 08/08/18 Ibuprofen 800 mg PO TID PRN 08/08/18 Pantoprazole Sodium 40 mg PO DAILY 08/08/18 Sumatriptan Succinate [Imitrex] 25 mg PO TID PRN 08/08/18 Topiramate 50 mg PO DAILY 08/08/18 predniSONE 20 mg PO DAILY 5 Days tab 08/13/18
[2018-08-13] MEDS ORDERED: DEXAMETHASONE INJ 10 MG/ML VIAL IM ONE (07:32)
[2018-08-13 08:09] VITALS: O2SAT 97
== END 2018-08-13 08:12 | disposition home or self-care (01) ==
LOC: ER 07:08
DX: S80.02XD Contusion of left knee, subsequent encounter (principal); K21.9 Gastro-esophageal reflux disease without esophagitis

== ENCOUNTER → 2018-08-15 | Outpatient (CLI) | payer OTHER, MEDICAID ==
--- NOTE | 2018-08-15 11:02 | RAD ---
Three-view cervical spine radiographs Indication: NECK PAIN Comparison: None. Impression: C1-C2 articulation unremarkable. Vertebral body height maintained without fracture or subluxation. Disc space height preserved. Straightening cervical spine. Electronically signed by: Porfirio Bartholomew MD 08/15/2018 11:01 AM [facility]
--- NOTE | 2018-08-15 11:03 | RAD ---
Three-view left knee Indication: PAIN IN LEFT KNEE Comparison: August 08, 2018. Impression: Mild tricompartmental joint space narrowing with tiny osteophytes. Tiny joint effusion. No acute fracture or malalignment. MRI could better evaluate for internal derangement as clinically indicated. Electronically signed by: Porfirio Bartholomew MD 08/15/2018 11:02 AM [facility]
== END ==
LOC: RAD 10:30
DX: M54.2 Cervicalgia (principal); M25.562 Pain in left knee; M25.762 Osteophyte, left knee; M25.462 Effusion, left knee

== ENCOUNTER 2018-08-16 19:42 | Emergency (ER) | payer OTHER, MEDICAID ==
[2018-08-16 20:17] VITALS: BP 149/77; TEMP 97.9; O2SAT 96
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
[2018-08-16] MEDS ORDERED: KETOROLAC TROMETHAMINE INJ 60 MG/2 ML VIAL IM ONE (20:36)
== END 2018-08-16 20:50 | disposition home or self-care (01) ==
LOC: ER 19:42
DX: G44.229 Chronic tension-type headache, not intractable (principal); K21.9 Gastro-esophageal reflux disease without esophagitis; Z79.899 Other long term (current) drug therapy

== ENCOUNTER 2018-08-17 19:57 | Emergency (ER) | payer OTHER, MEDICAID ==
[2018-08-17 20:27] VITALS: O2SAT 98
[2018-08-17] MEDS ORDERED: MAGNESIUM HYDROXIDE 30 ML UD PO ONE (20:27)
[2018-08-17] MEDS ORDERED: FAMOTIDINE 20 MG TAB PO ONE (20:27)
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
[2018-08-17 20:49] VITALS: BP 122/83; TEMP 97.4
== END 2018-08-17 20:45 | disposition home or self-care (01) ==
LOC: ER 19:57
DX: K29.00 Acute gastritis without bleeding (principal); M54.5 Low back pain; R51 Headache; K21.9 Gastro-esophageal reflux disease without esophagitis

== ENCOUNTER 2018-08-18 22:37 | Emergency (ER) | payer OTHER, MEDICAID ==
[2018-08-18 22:53] VITALS: O2SAT 100
[2018-08-18] MEDS ORDERED: PROCHLORPERAZINE INJ 10 MG/2 ML VIAL IV ONE (23:05)
[2018-08-18] MEDS ORDERED: LACTATED RINGERS 1,000 ML IVS ONE (23:05)
[2018-08-18] MEDS ORDERED: KETOROLAC TROMETHAMINE INJ 30 MG/ML VIAL IV ONE (23:05)
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
--- NOTE | 2018-08-19 00:14 | CT ---
EXAM DESCRIPTION: Abdomen/Pelvis w/Contrast CLINICAL HISTORY: 32 years Female abdominal pain COMPARISON: . TECHNIQUE: Contiguous axial images obtained through the abdomen and pelvis following IV contrast. Reformatted images obtained. This exam was performed according to our department optimization program which includes automated exposure control, adjustment of the mA and/or kv according to patient size and/or use of iterative reconstruction technique. FINDINGS: The study is slightly suboptimal from motion artifact. The lung bases are clear. The liver appears unremarkable. The spleen and pancreas appear unremarkable. No adrenal masses. The kidneys appear unremarkable. No hydronephrosis. Changes from previous cholecystectomy. No aneurysmal dilatation of the aorta. No bowel obstruction. The appendix appears unremarkable. No free pelvic fluid. Wall thickening in the urinary bladder most likely from incomplete distention. If there is clinical concern for cystitis, urinalysis is recommended. Small fat-containing umbilical hernia. IMPRESSION: Wall thickening in the urinary bladder most likely from incomplete distention. If there is clinical concern for cystitis, urinalysis is recommended. 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
[2018-08-19 01:16] VITALS: BP 142/82; TEMP 97.4
== END 2018-08-19 01:12 | disposition home or self-care (01) ==
LOC: ER 22:37
DX: R10.32 Left lower quadrant pain (principal); K21.9 Gastro-esophageal reflux disease without esophagitis; Z90.49 Acquired absence of other specified parts of digestive tract
CPT/HCPCS: 74177; 80053; 81001; 85025; J0780; J1885; J7120

== ENCOUNTER 2018-08-23 17:50 | Emergency (ER) | payer OTHER, MEDICAID ==
[2018-08-23 18:06] VITALS: TEMP 97.6; O2SAT 97
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
[2018-08-23] MEDS ORDERED: CEFUROXIME AXETIL TAB 250 MG TAB PO ONE (18:28)
--- NOTE | 2018-08-23 18:54 | RAD ---
EXAM DESCRIPTION: Sinuses Series CLINICAL HISTORY: 32 years Female nasal congestion/pain right cheek COMPARISON: None TECHNIQUE: Lateral Denise and Ramirez views of the paranasal sinuses are obtained. FINDINGS: OSSEOUS: There is no evidence of acute fracture or osteolytic/osteoblastic lesions. The frontal, ethmoid, maxillary and sphenoid sinuses are clear and without air-fluid levels. There is no evidence of intraorbital emphysema. The mastoids are clear. SOFT TISSUE: There is no significant soft tissue swelling or mass. No evidence of significant soft tissue calcifications. No radiopaque foreign bodies. IMPRESSION: No evidence of sinusitis. Remainder of findings as described above. Electronically signed by: Yaima Quesada MD 08/23/2018 6:52 PM [employer]IVER
[2018-08-23 19:07] VITALS: BP 132/82
== END 2018-08-23 19:07 | disposition home or self-care (01) ==
LOC: ER 17:50
DX: J06.9 Acute upper respiratory infection, unspecified (principal); K21.9 Gastro-esophageal reflux disease without esophagitis

== ENCOUNTER 2018-08-25 08:58 | Emergency (ER) | payer OTHER, MEDICAID ==
[2018-08-25 09:26] VITALS: TEMP 97.6
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
[2018-08-25] MEDS ORDERED: KETOROLAC TROMETHAMINE INJ 30 MG/ML VIAL IV ONE (10:11)
[2018-08-25] MEDS ORDERED: METOCLOPRAMIDE HCL INJ 10 MG/2 ML VIAL IV ONE (10:11)
[2018-08-25 10:29] VITALS: O2SAT 99
[2018-08-25] MEDS ORDERED: SODIUM CHLORIDE 0.9% 1000ML 1,000 ML IVS ONE (10:57)
[2018-08-25] MEDS ORDERED: traMADol HCL 50 MG TAB ONE (12:35)
[2018-08-25] MEDS ORDERED: traMADol HCL 50 MG TAB PO ONE (12:40)
[2018-08-25 12:52] VITALS: BP 131/73
== END 2018-08-25 12:53 | disposition home or self-care (01) ==
LOC: ER 08:58
DX: R42 Dizziness and giddiness (principal); R51 Headache; R55 Syncope and collapse; K21.9 Gastro-esophageal reflux disease without esophagitis; Z79.899 Other long term (current) drug therapy
CPT/HCPCS: 36415; 80048; 84703; 85025; 93005; J1885; J2765; J7030

== ENCOUNTER → 2018-08-27 | Outpatient (CLI) | payer OTHER, MEDICAID ==
--- NOTE | 2018-08-27 14:10 | MRI ---
EXAM DESCRIPTION: Cervical Spine: MRI. CLINICAL HISTORY: 32 years Female RADICULOPATHY CERVICAL REGION COMPARISON: CT cervical spine 07/02/2017. TECHNIQUE: Multiplanar, high-field MRI, multiple sequences, non-contrast Cervical spine. FINDINGS: On the disc spaces are well-maintained with normal signal in the disks. No disc bulging and canal are for neural foramina bilaterally. No abnormal bony endplate changes. Neuroforamina are patent at every level. No facet arthrosis and ligament hypertrophy at any level. Spinal alignment minimally kyphotic in the mid spine.. No cord compression or cord edema. Atlantoaxial joint negative.. Base of the cerebellar tonsils is above the foramen magnum. Paravertebral soft tissues are unremarkable.. Vertebral bodies are not compressed at any level. Normal marrow signal in the remaining vertebral bodies and the posterior elements. IMPRESSION: Normal disc and disc spaces. Canal and neural foramina are patent. Normal signal in the cord with no cord compression. Facets and ligaments and the canal are negative. No soft tissue abnormalities. Minimal Minimal kyphosis could be due to positioning or muscle spasm. Electronically signed by: Freddy Kapoor MD 08/27/2018 2:09 PM [facility]
== END ==
LOC: MRI 08-13 07:01 → EEVIPCON 08:00 → MRI 08:00
PROVIDERS: ATTEND Psychiatry & Neurology Neurology
DX: M54.12 Radiculopathy, cervical region (principal)

== ENCOUNTER 2018-09-09 17:49 | Emergency (ER) | payer OTHER, MEDICAID ==
[2018-09-09 18:07] VITALS: TEMP 98.6
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
[2018-09-09 18:22] VITALS: BP 134/94; O2SAT 98
== END 2018-09-09 18:24 | disposition home or self-care (01) ==
LOC: ER 17:49
DX: S80.11XA Contusion of right lower leg, initial encounter (principal); K21.9 Gastro-esophageal reflux disease without esophagitis; V18.0XXA Pedal cycle driver injured in noncollision transport accident in nontraffic accident, initial encounter; Y93.55 Activity, bike riding; Z79.899 Other long term (current) drug therapy

== ENCOUNTER 2018-10-08 17:31 | Emergency (ER) | payer OTHER, MEDICAID ==
[2018-10-08] MEDS ORDERED: SODIUM CHLORIDE 0.9% 1000ML 1,000 ML IVS ONE (18:47)
[2018-10-08] MEDS ORDERED: KETOROLAC TROMETHAMINE INJ 30 MG/ML VIAL IV ONE (18:47)
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
[2018-10-08] MEDS ORDERED: DICYCLOMINE HCL INJ 20 MG/2 ML AMP IM ONE (20:17)
[2018-10-08] MEDS ORDERED: PANTOPRAZOLE SODIUM IV 40 MG VIAL IV ONE (20:22)
--- NOTE | 2018-10-08 20:37 | RAD ---
EXAM DESCRIPTION: Chest,2 Views CLINICAL HISTORY: CP, COUGH COMPARISON: None FINDINGS: 2 view(s) submitted. No fracture or dislocation is identified. Bone marrow attenuation is unremarkable. No radiopaque foreign body is identified. IMPRESSION: No acute fracture or dislocation. Electronically signed by: Freddy Jiménez 10/08/2018 8:36 PM [facility]
[2018-10-08 20:49] VITALS: O2SAT 98
[2018-10-08 22:22] VITALS: BP 121/74; TEMP 98.6
== END 2018-10-08 22:15 | disposition home or self-care (01) ==
LOC: ER 17:31
DX: J01.10 Acute frontal sinusitis, unspecified (principal); K29.00 Acute gastritis without bleeding; F41.9 Anxiety disorder, unspecified; K21.9 Gastro-esophageal reflux disease without esophagitis; R00.0 Tachycardia, unspecified
CPT/HCPCS: 36415; 71046; 80048; 80076; 81001; 81025; 83690; 85025; 93005; J0500; J1885; J7030

== ENCOUNTER → 2018-10-09 | Outpatient (CLI) | payer OTHER, MEDICAID ==
--- NOTE | 2018-10-09 15:50 | CT ---
EXAM DESCRIPTION: Abdoment/Pelvis w/o Contrast CLINICAL HISTORY: 33 years Female, ACUTE GASTRITIS WITHOUT BLEEDING COMPARISON: CT abdomen and pelvis dated 08/19/2018. TECHNIQUE: Contiguous 3 mm axial images were obtained from the lung bases to the level of the proximal femora without the administration of intravenous or oral contrast. Sagittal and coronal reconstructions were reviewed. FINDINGS: Limited evaluation of the solid organs due to the lack of intravenous contrast. THORAX: The imaged lower thorax demonstrates no gross abnormality. LIVER: The liver demonstrates normal size and density with no intrahepatic biliary ductal dilatation. GALLBLADDER: Surgically absent. PANCREAS: Appears normal with no cystic or solid lesions. SPLEEN: Normal ADRENAL GLANDS: Normal with no nodules or masses. KIDNEYS: Both kidneys are symmetric in size and contour with no hydronephrosis or nephrolithiasis or perinephric fluid collections. The visualized ureters appear grossly unremarkable. STOMACH: The stomach is not well-distended and demonstrates a circumferentially thick wall which could be secondary to poor distention. No significant surrounding stranding is identified. SMALL BOWEL: The small bowel loops demonstrate variable degrees of distention with no abnormal dilatation or other signs to suggest bowel obstruction. LARGE BOWEL: The colon is adequately distended with no gross abnormality. The appendix is well-visualized and appears normal No evidence of free intraperitoneal air or fluid. RETROPERITONEUM: The abdominal aorta is nonaneurysmal with no significant atherosclerosis. The inferior vena cava is normal in size and caliber. Multiple lymph nodes are identified in the small bowel mesentery with fat stranding. 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 URINARY BLADDER: The urinary bladder is not well-distended and demonstrates a circumferentially thick wall most likely secondary to poor distention. The uterus and adnexa appear normal. ADDITIONAL FINDINGS: None. BONES: No significant degenerative changes are identified in the visualized bones.No evidence of osteophytic or osteoblastic lesions. IMPRESSION: 1. No definite evidence of gastritis. 2. Multiple lymph nodes are identified in the small bowel mesentery with surrounding fat stranding, representing changes of mesenteric panniculitis. This is nonspecific in etiology. This exam was performed according to our departmental dose-optimization program, which includes automated exposure control, adjustment of the mA and/or kV according to patient size and/or use of iterative reconstruction technique. Electronically signed by: Kimberly Florence MD 10/09/2018 3:48 PM [employer]
== END ==
LOC: CT 15:08
PROVIDERS: ATTEND Family Medicine
DX: K29.00 Acute gastritis without bleeding (principal); R10.826 Epigastric rebound abdominal tenderness

== ENCOUNTER 2018-10-24 14:28 | Emergency (ER) | payer OTHER, MEDICAID ==
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
[2018-10-24 18:16] VITALS: BP 112/81; TEMP 98; O2SAT 97
== END 2018-10-24 15:40 | disposition home or self-care (01) ==
LOC: ER 14:28
DX: R10.31 Right lower quadrant pain (principal); R10.13 Epigastric pain; K21.9 Gastro-esophageal reflux disease without esophagitis

== ENCOUNTER 2018-10-24 23:09 | Emergency (ER) | payer OTHER, MEDICAID ==
[2018-10-24] MEDS ORDERED: LIDOCAINE HCL 2% (MOUTH-THROAT) 15 ML UD ONE (23:23)
[2018-10-24] MEDS ORDERED: ALUM & MAG HYDROX-SIMETHICONE 30 ML UD ONE (23:23)
[2018-10-24] MEDS ORDERED: ALUM & MAG HYDROX-SIMETHICONE 30 ML, LIDOCAINE VISCOUS 2% 15 ML PO ONE ×2 (23:23)
[2018-10-24] MEDS ORDERED: SUCRALFATE 1 GM/10 ML 1 GM UD PO ONE (23:23)
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
[2018-10-24 23:36] VITALS: BP 122/79; TEMP 98.1
[2018-10-24 23:44] VITALS: O2SAT 95
== END 2018-10-24 23:43 | disposition home or self-care (01) ==
LOC: ER 23:09
DX: K21.9 Gastro-esophageal reflux disease without esophagitis (principal)

== ENCOUNTER 2018-10-26 00:32 | Emergency (ER) | payer OTHER, MEDICAID ==
[2018-10-26 00:54] VITALS: BP 133/99; TEMP 98.6; O2SAT 99
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
[2018-10-26] MEDS ORDERED: OXYMETAZOLINE NASAL SPRAY 15 ML BTTL BNAS PRN (01:18)
[2018-10-26] MEDS ORDERED: BENZONATATE PERLES 100 MG CAP PO ONE (01:18)
[2018-10-26] MEDS ORDERED: hydrOXYzine PAMOATE 25 MG CAP PO ONE (01:18)
[2018-10-26] MEDS ORDERED: CEFUROXIME AXETIL TAB 250 MG TAB PO ONE (01:19)
== END 2018-10-26 01:31 | disposition home or self-care (01) ==
LOC: ER 00:32
DX: J06.9 Acute upper respiratory infection, unspecified (principal); K21.9 Gastro-esophageal reflux disease without esophagitis

== ENCOUNTER 2019-01-10 20:58 | Emergency (ER) | payer OTHER, MEDICAID ==
[2019-01-10 21:12] VITALS: TEMP 97.5; O2SAT 99
[2019-01-10] MEDS ORDERED: SODIUM CHLORIDE 0.9% (FLUSH) 10 ML SYG IV PRN (21:19)
[2019-01-10] MEDS ORDERED: ASPIRIN TABLET 325 MG TAB PO ONE (21:19)
[2019-01-10] MEDS ORDERED: ALUM & MAG HYDROX-SIMETHICONE 30 ML, LIDOCAINE VISCOUS 2% 15 ML PO ONE ×2 (21:40)
[2019-01-10] MEDS ORDERED: LIDOCAINE HCL 2% (MOUTH-THROAT) 15 ML UD ONE (21:43)
[2019-01-10] MEDS ORDERED: ALUM & MAG HYDROX-SIMETHICONE 30 ML UD ONE (21:44)
--- NOTE | 2019-01-10 22:02 | RAD ---
EXAM: XR Chest, 1 View CLINICAL HISTORY: The patient is 33 years old and is Female; chest pains, shortness of breath TECHNIQUE: Frontal view of the chest. COMPARISON: Chest radiograph October 08, 2018. FINDINGS: LUNGS: Unremarkable. No consolidation. PLEURAL SPACE: Unremarkable. No pneumothorax. HEART: Unremarkable. No cardiomegaly. MEDIASTINUM: Unremarkable. BONES/JOINTS: Unremarkable. IMPRESSION: No acute cardiopulmonary process. Electronically signed by: Abbey Garcia MD 01/10/2019 9:45 PM CDT
[2019-01-10] MEDS ORDERED: SUCRALFATE 1 GM/10 ML 1 GM UD PO ONE (22:36)
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
[2019-01-10 23:47] VITALS: BP 145/92
[2019-01-11] MEDS ORDERED: PANTOPRAZOLE SODIUM TAB 40 MG PO ONE (00:07)
[2019-01-11] MEDS ORDERED: traMADol HCL 50 MG (ER DISP) # 6 TABS PO ONE (00:51)
== END 2019-01-11 00:55 | disposition home or self-care (01) ==
LOC: ER 20:58
DX: R07.89 Other chest pain (principal); R10.13 Epigastric pain; J45.909 Unspecified asthma, uncomplicated; K21.9 Gastro-esophageal reflux disease without esophagitis; Z79.899 Other long term (current) drug therapy

== ENCOUNTER 2019-01-14 05:38 | Day surgery (SDC) | payer OTHER, MEDICAID ==
[2019-01-14] MEDS ORDERED: LACTATED RINGERS 1,000 ML ONE (07:04)
[2019-01-14] MEDS ORDERED: LIDOCAINE 1% 10 ML VIAL INJ ONE (07:04)
[2019-01-14] MEDS ORDERED: PROPOFOL 200 MG/20 ML VIAL IV ONE (07:04)
[2019-01-14] MEDS ORDERED: LACTATED RINGERS 1,000 ML IVS ONE (09:45)
[2019-01-14] MEDS ORDERED: fentaNYL CITRATE INJ 50 MCG/ML AMP ONE (09:54)
--- NOTE | 2019-01-14 11:24 | OP ---
DATE OF PROCEDURE: 01/14/19 PREOPERATIVE DIAGNOSIS: 1. Nausea and vomiting. 2. Heartburn. 3. Bilateral lower quadrant pains. 4. Change in bowel habits with constipation alternating with diarrhea. POSTOPERATIVE DIAGNOSIS: 1. Minimal gastritis. 2. Minimal sigmoid colitis. PROCEDURE: 1. Esophagogastroduodenoscopy plus biopsy. 2. Colonoscopy plus biopsy. SURGEON: Connor Duncan MD. COMPLICATIONS: None apparent. BLOOD LOSS: None. MEDICATIONS: Monitored anesthesia care. DESCRIPTION OF PROCEDURE: Informed consent was obtained prior to sedation. The preprocedure cardiopulmonary assessment was satisfactory. The patient was placed in the left lateral decubitus position and was sedated. The tip of the Olympus esophagogastroduodenoscope was inserted in the oropharynx and carefully advanced through the cricopharyngeus into the esophageal lumen. The esophagus was unremarkable without any evidence of esophagitis, Batres's or other esophageal pathology. The stomach was examined with direct and retroflexed views. The antrum, body, fundus, cardia and incisura were examined. There was minimal antral gastritis and I biopsied her for that. The duodenum was examined down to the third portion and it overall was unremarkable. Biopsies of the second portion of the duodenum were obtained looking for celiac sprue. The scope was then removed from the patient. The patient was prepared for colonoscopy. A digital rectal exam was unremarkable. The tip of the Olympus colonoscope was inserted in the rectum and guided over to the cecum. The cecum was identified by locating the ileocecal valve and appendiceal orifice. Prep was very good. The ileocecal valve was intubated and the distal 30 cm of ileum were inspected and endoscopically, it was normal. The mucosa of the cecum, ascending colon, hepatic flexure, transverse colon, splenic flexure, descending colon and sigmoid colon was closely examined. Direct and retroflexed views of the rectum were obtained. There were biopsies of the right and proximal left colon that were obtained looking for microscopic colitis. In the sigmoid, there was a little erythema noted that possibly represents mild colitis. Biopsies of that area of the sigmoid were obtained as well. The procedure was then terminated. RECOMMENDATIONS: Followup the biopsies. We will discuss those results on the phone a week from now. I did not find anything obvious to account for her symptoms. It is possible they are mainly functional or could be related to medications. On her CAT scan, there was question of mesenteric lymphadenitis. This CAT scan was done in September. I think it would be appropriate to repeat the CAT scan with both IV and oral contrast within the next month or so and see if those changes persist or there is new pathology that has developed. #[id number] cc: Saray Can MD [facility]
[2019-01-14 12:41] VITALS: O2SAT 100
[2019-01-14 12:42] VITALS: BP 109/75; TEMP 97.8
== END 2019-01-14 12:40 | disposition home or self-care (01) ==
LOC: AMB 05:38
PROVIDERS: ATTEND Internal Medicine Gastroenterology
DX: K52.9 Noninfective gastroenteritis and colitis, unspecified (principal); K29.50 Unspecified chronic gastritis without bleeding; K21.9 Gastro-esophageal reflux disease without esophagitis; F32.9 Major depressive disorder, single episode, unspecified; E11.9 Type 2 diabetes mellitus without complications
CPT/HCPCS: 00811; 43239; 45380; J3010; J3490; J7120

== ENCOUNTER 2019-02-07 00:55 | Emergency (ER) | payer OTHER, MEDICAID ==
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
[2019-02-07] MEDS: KETOROLAC TROMETHAMINE INJ 60 MG/2 ML VIAL IM ONE (01:20)
[2019-02-07 01:40] VITALS: BP 120/98; TEMP 98.2; O2SAT 98
== END 2019-02-07 01:40 | disposition home or self-care (01) ==
LOC: ER 00:55
DX: M54.5 Low back pain (principal); K21.9 Gastro-esophageal reflux disease without esophagitis; Z79.899 Other long term (current) drug therapy

== ENCOUNTER → 2019-02-11 | Outpatient (CLI) | payer OTHER, MEDICAID ==
--- NOTE | 2019-02-11 10:48 | CT ---
EXAM DESCRIPTION: CT ABDOMEN AND PELVIS WITH CONTRAST CLINICAL HISTORY: LLQ PAIN COMPARISON: Previous CT abdomen and pelvis without contrast October 09, 2018 TECHNIQUE: CT of the abdomen and pelvis are performed during IV bolus administration of routine adult dose of nonionic iodinated IV contrast. Oral contrast media is administered as well. FINDINGS: In the lower chest, the lung bases are clear. Heart size is normal. CT abdomen Gallbladder is surgically absent. Tiny cyst in the anterior upper left kidney. Otherwise the liver, spleen, pancreas, adrenal glands, stomach and kidneys are unremarkable in appearance. Small accessory splenule. No inflammation around the pancreas. No renal stones or hydronephrosis. Delayed images show positive contrast in the urinary collecting system. No bowel dilatation to suggest obstruction. No free air or free fluid. CT pelvis Appendix appears normal. No inflammation around the cecum or terminal ileum or sigmoid colon. Bladder and distal ureters are negative for stones. Normal enhancement of pelvic vessels. No inguinal or lower pelvic adenopathy. Uterus and ovaries appear normal. Bone window images are negative for fracture or lytic lesion. Coronal and sagittal reformatted images confirm the findings. Bladder wall appears thickened. Correlate with urinalysis. IMPRESSION: No acute process in the abdomen or pelvis. This exam was performed according to our departmental dose-optimization program, which includes automated exposure control, adjustment of the mA and/or kV according to patient size and/or use of iterative reconstruction technique. Total DLP equals 2885.25 mGycm. Electronically signed by: Braxton Bose MD 02/11/2019 10:46 AM CDT
== END ==
LOC: CT 08:00
PROVIDERS: ATTEND Internal Medicine Gastroenterology
DX: R19.4 Change in bowel habit (principal); R10.32 Left lower quadrant pain; R10.31 Right lower quadrant pain

== ENCOUNTER 2019-02-18 23:33 | Emergency (ER) | payer OTHER, MEDICAID ==
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
[2019-02-19] MEDS ORDERED: CETIRIZINE HCL 10 MG TAB PO ONE (00:58)
[2019-02-19] MEDS ORDERED: OXYMETAZOLINE NASAL SPRAY 15 ML BTTL BNAS PRN (00:58)
[2019-02-19 01:43] VITALS: BP 120/82; TEMP 97.9; O2SAT 99
== END 2019-02-19 01:43 | disposition home or self-care (01) ==
LOC: ER 23:33
DX: J02.9 Acute pharyngitis, unspecified (principal); R04.0 Epistaxis; K21.9 Gastro-esophageal reflux disease without esophagitis; Z79.899 Other long term (current) drug therapy

== ENCOUNTER 2019-02-22 03:49 | Emergency (ER) | payer MEDICARE, MEDICAID ==
[2019-02-22] MEDS ORDERED: SODIUM CHLORIDE 0.9% 500ML 500 ML IVS ONE (04:10)
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
[2019-02-22] MEDS ORDERED: ONDANSETRON INJ 4 MG/2 ML VIAL IV ONE (04:32)
[2019-02-22 07:05] VITALS: BP 94/70; TEMP 97.3; O2SAT 100
== END 2019-02-22 06:55 | disposition home or self-care (01) ==
LOC: ER 03:49
DX: R42 Dizziness and giddiness (principal); T43.015A Adverse effect of tricyclic antidepressants, initial encounter; K21.9 Gastro-esophageal reflux disease without esophagitis; Z79.899 Other long term (current) drug therapy
CPT/HCPCS: 36415; 80053; 81001; 83690; 85025; J2405; J7040

== ENCOUNTER → 2019-03-18 | Outpatient (CLI) | payer OTHER, MEDICAID | LOC: LAB.O 07:35 | PROVIDERS: ATTEND Obstetrics & Gynecology | DX: N36.44 Muscular disorders of urethra (principal); N92.0 Excessive and frequent menstruation with regular cycle ==

== ENCOUNTER 2019-03-22 17:09 | Emergency (ER) | payer OTHER, MEDICAID ==
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
[2019-03-22] MEDS ORDERED: KETOROLAC TROMETHAMINE INJ 30 MG/ML VIAL IV ONE (17:36)
[2019-03-22 17:39] VITALS: TEMP 97.5; O2SAT 95
[2019-03-22] MEDS ORDERED: KETOROLAC TROMETHAMINE INJ 60 MG/2 ML VIAL IM ONE (17:59)
--- NOTE | 2019-03-22 18:22 | RAD ---
EXAM DESCRIPTION: Lumbar Spine 3 Views CLINICAL HISTORY: 33 years ,Female pain after fall COMPARISON: None. TECHNIQUE: Three views FINDINGS: Vertebral body alignment is unremarkable. No acute fractures are identified. IMPRESSION: No acute fracture is identified. Electronically signed by: Roxanne Ritter MD 03/22/2019 6:19 PM CDT
[2019-03-22 18:36] VITALS: BP 113/88
== END 2019-03-22 18:29 | disposition home or self-care (01) ==
LOC: ER 17:09
DX: M54.5 Low back pain (principal); K21.9 Gastro-esophageal reflux disease without esophagitis; Z79.899 Other long term (current) drug therapy
CPT/HCPCS: 72100; J1885

== ENCOUNTER 2019-03-26 14:28 | Emergency (ER) | payer MEDICARE, MEDICAID ==
[2019-03-26] MEDS ORDERED: HALOPERIDOL LACTATE INJ 5 MG/ML VIAL IM ONE ×2 (15:29→15:36)
[2019-03-26] MEDS ORDERED: diphenhydrAMINE HCL 50 MG/ML VIAL IV ONE (15:31)
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
[2019-03-26 17:18] VITALS: BP 109/84; TEMP 98.7; O2SAT 95
== END 2019-03-26 17:17 | disposition home or self-care (01) ==
LOC: ER 14:28
DX: G43.C0 Periodic headache syndromes in child or adult, not intractable (principal); K21.9 Gastro-esophageal reflux disease without esophagitis; Z79.899 Other long term (current) drug therapy
CPT/HCPCS: J1200; J1630

== ENCOUNTER → 2019-04-09 | Outpatient (CLI) | payer MEDICARE, MEDICAID ==
--- NOTE | 2019-04-10 10:39 | RAD ---
PROVIDED CLINICAL HISTORY/REASON FOR EXAM: BACK PAIN Findings: Number of images: Six Location: Thoracic and lumbar spine Thoracic spine: There are 12 rib-bearing vertebral bodies. No vertebral anomalies. Soft tissues are unremarkable. Cholecystectomy clips. Vertebral body heights and disc spaces are largely maintained. Limited evaluation of the upper thoracic spine. No acute fracture or subluxation. Lumbar spine: There are five nonrib-bearing vertebral bodies. Vertebral body heights and disc spaces are maintained. No acute fracture or subluxation. IMPRESSION: Unremarkable radiographs of the thoracolumbar spine. Electronically signed by: Diego Morales MD 04/10/2019 10:37 AM CDT
== END ==
LOC: RAD 15:05
PROVIDERS: ATTEND Nurse Practitioner Family
DX: M54.6 Pain in thoracic spine (principal); M54.5 Low back pain

== ENCOUNTER 2019-04-21 | Emergency (ER) | payer OTHER, MEDICAID ==
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
== END 2019-04-21 22:51 | disposition home or self-care (01) ==

== ENCOUNTER 2019-05-10 12:58 | Emergency (ER) | payer OTHER ==
[2019-05-10 13:49] VITALS: BP 138/80; TEMP 97.9; O2SAT 100
== END 2019-05-10 13:50 | disposition home or self-care (01) ==
LOC: ER 12:58
DX: M70.22 Olecranon bursitis, left elbow (principal); K21.9 Gastro-esophageal reflux disease without esophagitis; Z79.899 Other long term (current) drug therapy

== ENCOUNTER → 2019-05-19 | Outpatient (CLI) | payer MEDICARE, MEDICAID ==
--- NOTE | 2019-05-20 12:36 | MRI ---
EXAM DESCRIPTION: Lumbar Spine w/o Contrast : Magnetic Resonance Imaging. CLINICAL HISTORY: RADICULOPATHY COMPARISON: Lumbar radiographs 04/09/2019. He scanning of the abdomen and pelvis with contrast 02/11/2019. TECHNIQUE: Multiplanar, multiple standard sequences, non contrast MRI, lumbar spine.. Resolution is decreased on the study due to large patient body habitus. FINDINGS: L5-S1: The disc is well visualized on axial T2 series 501, image 3. Disc space is decreased. Minimal desiccation. Tiny posterior midline bulge. Posterior flavum ligament is not thickened. Bilaterally shortened pedicles. Central joints unremarkable. AP canal diameter 10 mm. Moderate narrowing of the bilateral foramina. L4-L5: Normal signal in the disc. Tiny posterior midline bulge. Minimal ligament thickening. Bilateral shortened pedicles. AP canal diameter 10 mm. Bilateral foramina are minimally narrowed. L3-L4: Disc space preserved with normal signal in the disc. Mild posterior ligament thickening. Bilaterally shortened pedicles. Facets negative. AP canal diameter 11 mm. Bilateral foramina are patent. L2-L3: Disc space maintained with normal signal in the disc. Minimal posterior ligament thickening. Short bilateral pedicles. Negative facets. AP canal diameter 12 mm. Bilateral foramina are patent. L1-L2: Normal signal in the disc and disc space preserved. Bilaterally shortened pedicles. AP canal diameter 13 mm. Ligaments and facets negative. Bilateral foramina are patent. T12-L1: Normal signal in the disc and disc space maintained. Posterior elements unremarkable. Canal and foramina are patent. Conus terminates at the level of mid L1 vertebral body. No significant curvature or spondylolisthesis. Paravertebral soft tissues negative. Distal cord normal signal and caliber. Otherwise normal marrow signal in the remaining vertebral bodies and the posterior elements. Vertebral bodies are not compressed at any level. IMPRESSION: 1. Posterior ligament thickening and bilaterally shortened pedicles at almost every level. Borderline mild central canal stenosis at L5-S1 and L4-L5. 2. Minimal disc and facet disease. No marked disc bulging or herniation. Moderate to mild canal narrowing L4-L5 and L1-L2. No significant foraminal narrowing bilaterally. No compression type vertebral body fractures. Anatomic alignment and curvature of the spine. Electronically signed by: Freddy Kapoor MD 05/20/2019 12:35 PM CDT
== END ==
LOC: MRI 08:00
PROVIDERS: ATTEND Psychiatry & Neurology Neurology
DX: M51.16 Intervertebral disc disorders with radiculopathy, lumbar region (principal); M46.06 Spinal enthesopathy, lumbar region

== ENCOUNTER 2019-06-11 17:24 | Emergency (ER) | payer OTHER ==
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
[2019-06-11 18:23] VITALS: BP 127/91; TEMP 97.5; O2SAT 96
== END 2019-06-11 18:11 | disposition home or self-care (01) ==
LOC: ER 17:24
DX: R21 Rash and other nonspecific skin eruption (principal); K21.9 Gastro-esophageal reflux disease without esophagitis; Z79.899 Other long term (current) drug therapy

== ENCOUNTER 2019-06-18 16:07 | Emergency (ER) | payer MEDICARE, OTHER ==
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
[2019-06-18 16:54] VITALS: TEMP 98.2
[2019-06-18 17:03] VITALS: BP 131/87; O2SAT 100
== END 2019-06-18 16:42 | disposition home or self-care (01) ==
LOC: ER 16:07
DX: R04.0 Epistaxis (principal); R09.81 Nasal congestion; E66.9 Obesity, unspecified; K21.9 Gastro-esophageal reflux disease without esophagitis; Z79.899 Other long term (current) drug therapy; Z68.41 Body mass index [BMI] 40.0-44.9, adult

== ENCOUNTER 2019-06-23 21:01 | Emergency (ER) | payer MEDICARE, MEDICAID ==
--- NOTE | 2019-06-23 21:55 | RAD ---
EXAM DESCRIPTION: XR Knee, Right Complete CLINICAL HISTORY: 33 years Female lateral knee pain TECHNIQUE: Three views of the right knee COMPARISON: No prior exams provided for comparison. FINDINGS: There is no acute right knee fracture, dislocation, or suprapatellar joint effusion. Minimal spurring of the tibial spines. Joint spaces are preserved. Small superior patellar enthesophyte. No aggressive osseous lesion. IMPRESSION: No acute findings in the right knee. Minimal degenerative changes. Electronically signed by: Charissa Blas MD 06/23/2019 9:54 PM CDT
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
[2019-06-23 22:21] VITALS: BP 125/85; TEMP 98; O2SAT 99
== END 2019-06-23 22:18 | disposition home or self-care (01) ==
LOC: ER 21:01
DX: S83.421A Sprain of lateral collateral ligament of right knee, initial encounter (principal); K21.9 Gastro-esophageal reflux disease without esophagitis; Z79.899 Other long term (current) drug therapy; X50.9XXA Other and unspecified overexertion or strenuous movements or postures, initial encounter; Y92.9 Unspecified place or not applicable

== ENCOUNTER → 2019-08-27 | Outpatient (CLI) | payer MEDICARE, OTHER ==
--- NOTE | 2019-08-28 08:45 | MRI ---
EXAM DESCRIPTION: Lumbar Spine w/o Contrast : Magnetic Resonance Imaging. CLINICAL HISTORY: RADICULOPATHY COMPARISON: MRI scan lumbar spine noncontrast May 2019. TECHNIQUE: Multiplanar, multiple standard sequences, non contrast MRI, lumbar spine. Image degradation on some sequences due to patient motion. Also large patient body habitus decreasing resolution. FINDINGS: L5-S1: The disc is well visualized on axial T2 series 501, image 3. Disc space is narrowed. Disc desiccated and no bulging. Bilateral shortened pedicles. Posterior elements: Facet joints and posterior flavum ligaments are unremarkable. AP canal diameter 10 mm. Mild left foraminal narrowing and mild to moderate right foraminal narrowing. L4-L5: Disc space maintained with normal signal in the disc. Bilaterally shortened pedicles. Minimal hypertrophy of the posterior ligaments. AP canal diameter 11 mm. Mild bilateral foraminal narrowing. L3-L4: Disc space maintained with normal signal in the disc. Bilaterally shortened pedicles. Minimal hypertrophy of the posterior ligaments. AP canal diameter 10.5 mm. Bilateral foramina are patent. L2-L3: Normal signal in the disc with disc space maintained and no bulging. Bilateral shortened pedicles. Posterior elements unremarkable. AP canal diameter 11 mm. Bilateral foramina are patent. L1-L2: Normal signal in the disc with disc space maintained and no bulging. Posterior elements unremarkable. Bilaterally shortened pedicles. AP canal diameter 12 mm. Bilateral foramina are patent. T12-L1: Normal signal in the disc with disc space maintained. No posterior bulging. Posterior elements unremarkable. Canal is patent. Bilateral foramina are patent. Conus termination is below the disc space. No scoliosis. Paravertebral soft tissues large patient body habitus. Distal cord normal signal and caliber. Normal marrow signal in the remaining vertebral bodies and the posterior elements. Vertebral bodies are not compressed at any level. IMPRESSION: 1. Bilaterally shortened pedicles at almost every level, similar to the prior study. Posterior flavum ligament hypertrophy at some levels contributing to canal narrowing. 2. Borderline mild central canal stenosis at L5-S1 and L3-L4. No significant change from the prior study. Moderate canal narrowing at other levels. Discs are essentially normal at all levels. No significant foraminal narrowing or stenosis at any level. Paravertebral soft tissues are unremarkable. Electronically signed by: Freddy Kapoor MD 08/28/2019 8:43 AM INTERFACE DEVELOPER
== END ==
LOC: MRI 10:44
PROVIDERS: ATTEND Psychiatry & Neurology Neurology
DX: M51.16 Intervertebral disc disorders with radiculopathy, lumbar region (principal); M48.061 Spinal stenosis, lumbar region without neurogenic claudication; M48.07 Spinal stenosis, lumbosacral region; Q67.5 Congenital deformity of spine

== ENCOUNTER 2019-09-09 01:19 | Emergency (ER) | payer MEDICARE, OTHER ==
[2019-09-09 01:32] VITALS: TEMP 97.5
[2019-09-09] MEDS: KETOROLAC TROMETHAMINE INJ 60 MG/2 ML VIAL IM ONE (01:50)
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
[2019-09-09 01:58] VITALS: BP 154/87; O2SAT 97
== END 2019-09-09 01:57 | disposition home or self-care (01) ==
LOC: ER 01:19
DX: K02.9 Dental caries, unspecified (principal); S02.5XXA Fracture of tooth (traumatic), initial encounter for closed fracture; K21.9 Gastro-esophageal reflux disease without esophagitis; Z79.899 Other long term (current) drug therapy; X58.XXXA Exposure to other specified factors, initial encounter; Y92.9 Unspecified place or not applicable

== ENCOUNTER 2019-09-20 12:50 | Emergency (ER) | payer MEDICARE, MEDICAID ==
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
[2019-09-20 13:21] VITALS: BP 143/90; TEMP 97.7; O2SAT 99
== END 2019-09-20 13:24 | disposition home or self-care (01) ==
LOC: ER 12:50
DX: G89.18 Other acute postprocedural pain (principal); K08.109 Complete loss of teeth, unspecified cause, unspecified class; M54.5 Low back pain; G89.29 Other chronic pain; K21.9 Gastro-esophageal reflux disease without esophagitis; Z79.899 Other long term (current) drug therapy

== ENCOUNTER 2019-10-25 17:30 | Emergency (ER) | payer MEDICARE, OTHER ==
[2019-10-25 21:50] VITALS: O2SAT 98
[2019-10-25] MEDS ORDERED: KETOROLAC TROMETHAMINE INJ 30 MG/ML VIAL IM ONE (22:06)
--- NOTE | 2019-10-25 22:10 | ED.PDOC ---
History of Present Illness - General Chief Complaint: Upper Extremity Injury Stated Complaint: right elbow pain, no injury occurred Time Seen by Provider: 10/25/19 18:27 - History of Present Illness Initial Comments: c/o having RUE pain and some decrease range of motion since 3 days , no trauma , no fever or chills Improving Factors: nothing Worsening Factors: nothing Allergies/Adverse Reactions: Allergies NO KNOWN ALLERGY Allergy (Verified 09/20/19 13:21) Home Medications: Ambulatory Orders Loratadine [Claritin] 10 mg PO BEDTIME 01/13/19 Montelukast [Singulair] 10 mg PO DAILY 01/13/19 Oxybutynin Chloride [Oxybutynin Chloride ER] 10 mg PO BEDTIME 01/13/19 Pantoprazole Sodium [Pantoprazole Sodium Dr] 40 mg PO DAILY 01/13/19 Pramipexole Dihydrochloride [Pramipexole Dihydrochlori] 0.5 mg PO BID 01/13/19 Linaclotide [Linzess] 72 mcg PO DAILY 03/26/19 Norethindrone (Contraceptive) [Deblitane] 0.35 mg PO DAILY 03/26/19 Oxcarbazepine 150 mg PO BID 03/26/19 Spironolactone 100 mg PO DAILY 03/26/19 Amoxicillin & Pot Clavulanate [Augmentin Tab] 875 mg PO BID 04/21/19 Cyclobenzaprine HCl [Cyclobenzaprine Hydrochlo] 10 mg PO BEDTIME 04/21/19 Ibuprofen [Ibu] 800 mg PO TID 04/21/19 Naproxen [EC-Naproxen] 500 mg PO 04/21/19 Norethindrone (Contraceptive) [Deblitane] 0.35 mg PO DAILY 04/21/19 Hydrocortisone (Topical) [Curad Hydrocortisone] 1 % EX BID #1 tube 06/11/19 Oxymetazoline HCl [Afrin Nasal [place]] 0.05 % .ROUTE Q12HR #1 spr 06/18/19 Acetaminophen W/ Codeine [Tylenol W/ CODEINE #3] 1 ea PO TID PRN #12 09/09/19 Clindamycin HCl 300 mg PO TID 7 Days #21 cap 09/09/19 Naproxen [Naprosyn] 500 mg PO BID #10 tab 10/25/19 Review of Systems - Review of Systems Constitutional: States: no symptoms reported EENTM: States: no symptoms reported Respiratory: States: no symptoms reported Cardiology: States: no symptoms reported Gastrointestinal/Abdominal: States: no symptoms reported Genitourinary: States: no symptoms reported Musculoskeletal: States: see HPI Neurological: States: no symptoms reported Endocrine: States: no symptoms reported Hematologic/Lymphatic: States: no symptoms reported Past Medical History (General) - Patient Medical History Hx Seizures: No Hx Stroke: No Hx Dementia: No Hx Asthma: No Hx of COPD: No Hx Cardiac Disorders: No Hx Congestive Heart Failure: No Hx Pacemaker: No Hx Hypertension: No Hx Thyroid Disease: No Hx Diabetes: No Hx Gastroesophageal Reflux: Yes Hx Renal Disease: No Hx Cancer: No Hx of HIV: No Hx Hepatitis C: No Hx MRSA: No MRSA Source:: Wound Surgical History: other - Vaccination History Hx Tetanus, Diphtheria Vaccination: Yes Hx Influenza Vaccination: Yes Hx Pneumococcal Vaccination: No - Social History Hx Tobacco Use: No Hx Chewing Tobacco Use: No Hx Alcohol Use: No Hx Substance Use: No Hx Substance Use Treatment: No Hx Depression: No Feels Threatened In Home Enviroment: No Feels Threatened In a Relationship: No Hx Physical Abuse: No Hx Emotional Abuse: No Hx Suspected Abuse: No - Female History Patient is a Female of Child Bearing Age (10 -59 yrs old): Yes Hx Last Menstrual Period: 07/29/18 Patient : No Family Medical History - Family History Mother Family History: Unknown Living Status: Unknown Hx Family;Other: adopted Physical Exam - Physical Exam General Appearance: Alert, Comfortable Eyes, Ears, Nose, Throat Exam: PERRL/EOMI, normal ENT inspection Neck: non-tender, full range of motion, supple, normal inspection Cardiovascular/Respiratory: regular rate, rhythm, normal breath sounds, no respiratory distress Back Exam: normal inspection Shoulder Exam: normal inspection, non-tender, no evidence of injury, normal ROM Elbow/Forearm Exam: bone tenderness - R elbow, limited ROM Wrist Exam: normal inspection, non-tender, no evidence of injury, normal ROM Hand Exam: normal inspection, non-tender, no evidence of injury, normal ROM Neuro/Tendon: normal sensation, normal motor functions, normal tendon functions Mental Status: alert, oriented x 3 Skin Exam: normal color, warm/dry Progress - Progress Progress: 10/27/19 21:36 During the visit saw the pt multiple time answer all the concern of the pt , reviewed X-ray with the pt. Told the pt that if symptoms gets worse , please come back to ER Follo up PCP as soon as possible Departure - Departure Clinical Impression: Sprain elbow/forearm, Upper extremity pain Time of Disposition: 22:09 Disposition: Discharge to Home or Self Care Condition: Good Departure Forms: ED Discharge - Pt. Copy, Patient Portal Self Enrollment Instructions: DI for Arm Pain, DI for Elbow Pain Diet: resume usual diet Activity: as per physical therapy, increase activity as tolerated Referrals: CAROL KENT MD [Primary Care Provider] - 1-2 Weeks Prescriptions: Naproxen [Naprosyn] 500 mg PO BID #10 tab Home Medications: Ambulatory Orders Loratadine [Claritin] 10 mg PO BEDTIME 01/13/19 Montelukast [Singulair] 10 mg PO DAILY 01/13/19 Oxybutynin Chloride [Oxybutynin Chloride ER] 10 mg PO BEDTIME 01/13/19 Pantoprazole Sodium [Pantoprazole Sodium Dr] 40 mg PO DAILY 01/13/19 Pramipexole Dihydrochloride [Pramipexole Dihydrochlori] 0.5 mg PO BID 01/13/19 Linaclotide [Linzess] 72 mcg PO DAILY 03/26/19 Norethindrone (Contraceptive) [Deblitane] 0.35 mg PO DAILY 03/26/19 Oxcarbazepine 150 mg PO BID 03/26/19 Spironolactone 100 mg PO DAILY 03/26/19 Amoxicillin & Pot Clavulanate [Augmentin Tab] 875 mg PO BID 04/21/19 Cyclobenzaprine HCl [Cyclobenzaprine Hydrochlo] 10 mg PO BEDTIME 04/21/19 Ibuprofen [Ibu] 800 mg PO TID 04/21/19 Naproxen [EC-Naproxen] 500 mg PO 04/21/19 Norethindrone (Contraceptive) [Deblitane] 0.35 mg PO DAILY 04/21/19 Hydrocortisone (Topical) [Curad Hydrocortisone] 1 % EX BID #1 tube 06/11/19 Oxymetazoline HCl [Afrin Nasal [place]] 0.05 % .ROUTE Q12HR #1 spr 06/18/19 Acetaminophen W/ Codeine [Tylenol W/ CODEINE #3] 1 ea PO TID PRN #12 09/09/19 Clindamycin HCl 300 mg PO TID 7 Days #21 cap 09/09/19 Naproxen [Naprosyn] 500 mg PO BID #10 tab 10/25/19 Additional Instructions: Return to the ER if symptoms gets worse or any other problem
--- NOTE | 2019-10-25 23:16 | RAD ---
EXAM: Elbow,Right 3 Views (accession [id number]), Forearm,Right (accession [id number]), Humerus,Right (accession [id number]) CLINICAL INDICATION: 34-year-old female with pain. TECHNIQUE: Two views of the RIGHT elbow, RIGHT humerus and forearm were obtained in AP, and lateral projections. COMPARISON: None. FINDINGS: There is no fracture or dislocation. The joint spaces are preserved. No soft tissue abnormalities are seen. IMPRESSION: No acute radiographic abnormality. Electronically signed by: Hazel Rebollar MD 10/25/2019 11:15 PM [facility]
--- NOTE | 2019-10-25 23:16 | RAD ---
EXAM: Elbow,Right 3 Views (accession [id number]), Forearm,Right (accession [id number]), Humerus,Right (accession [id number]) CLINICAL INDICATION: 34-year-old female with pain. TECHNIQUE: Two views of the RIGHT elbow, RIGHT humerus and forearm were obtained in AP, and lateral projections. COMPARISON: None. FINDINGS: There is no fracture or dislocation. The joint spaces are preserved. No soft tissue abnormalities are seen. IMPRESSION: No acute radiographic abnormality. Electronically signed by: Hazel Rebollar MD 10/25/2019 11:15 PM [facility]
--- NOTE | 2019-10-25 23:17 | RAD ---
EXAM: Elbow,Right 3 Views (accession [id number]), Forearm,Right (accession [id number]), Humerus,Right (accession [id number]) CLINICAL INDICATION: 34-year-old female with pain. TECHNIQUE: Two views of the RIGHT elbow, RIGHT humerus and forearm were obtained in AP, and lateral projections. COMPARISON: None. FINDINGS: There is no fracture or dislocation. The joint spaces are preserved. No soft tissue abnormalities are seen. IMPRESSION: No acute radiographic abnormality. Electronically signed by: Hazel Rebollar MD 10/25/2019 11:15 PM [facility]
[2019-10-25 23:37] VITALS: BP 105/68; TEMP 97.9
== END 2019-10-25 23:38 | disposition home or self-care (01) ==
LOC: ER 17:30
DX: S53.401A Unspecified sprain of right elbow, initial encounter (principal); K21.9 Gastro-esophageal reflux disease without esophagitis; Z79.899 Other long term (current) drug therapy; X58.XXXA Exposure to other specified factors, initial encounter; Y92.9 Unspecified place or not applicable
CPT/HCPCS: 73060; 73080; 73090; J1885

== ENCOUNTER → 2020-01-29 | Outpatient (CLI) | payer MEDICARE, MEDICAID | LOC: GMAE 11:32 | PROVIDERS: ATTEND Family Medicine | DX: Z79.899 Other long term (current) drug therapy (principal) ==

== ENCOUNTER → 2020-06-15 | Outpatient (CLI) | payer MEDICARE, MEDICAID ==
--- NOTE | 2020-06-16 14:07 | MRI ---
EXAM DESCRIPTION: Brain w/o Contrast: MRI. CLINICAL HISTORY: SYMPTOMATIC EPILEPSY WITH COMPLEX PARTIAL SEIZURES. HEADACHES COMPARISON: MRI scan of the brain without contrast June 2018. TECHNIQUE: Multiplanar, high-field MRI unit, multiple diffusion sequences, multiple conventional sequences without contrast. FINDINGS: Normal FLAIR and T2-weighted signal in the periventricular white matter and sub-cortical white matter seen in all lobes. . Normal signal in the left basal ganglia. Faint hyperintense focal signal in the posterior limb of the right internal capsule stable since the prior study and unlikely to represent pathology. No hemorrhage, no cerebral edema, no mass-effect normal signal in the brainstem and cerebellar hemispheres. . Concordance of the diffusion and non-diffusion sequences with no diffusion restriction. Cortical sulci, ventricles, and other CSF spaces, and the subdural spaces are normally configured for patient's age. No effacement or displacement. No midline shift. No extra-axial hemorrhage. Normal flow signal void in the major vessels of the morongo Panchal, and the venous sinuses. IACs are symmetric bilaterally. Minimal fluid signal in the inferior right mastoid air cells stable since the prior study. No mass effect in the bilateral cerebellopontine angles. Pituitary gland minimally enlarged and occupies the sella which is also expanded. Stable since the prior study. Base of the cerebellar tonsils is at the level of the foramen magnum. Minimal mucoperiosteal thickening in the paranasal sinuses. Anterior minimal left deviation of the septum. Namrata bullosa right middle turbinate stable. The bony calvarium is intact. IMPRESSION: 1. Unremarkable MRI scan of the brain without contrast with no intra-axial or extra-axial hemorrhage or extra-axial fluid. No mass effect, no cerebral edema, no midline shift. Stable since the prior study. 2. Normal noncontrast MRI diffusion study with no evidence of significant ischemia or acute or subacute infarction. 3. Minimal inflammatory changes right mastoid air cells and paranasal sinuses. Stable minimal anterior left septal deviation and right namrata bullosa. Electronically signed by: Freddy Kapoor MD 06/16/2020 2:05 PM CDT
== END ==
LOC: MRI 13:00
PROVIDERS: ATTEND Psychiatry & Neurology Neurology
DX: G40.219 Localization-related (focal) (partial) symptomatic epilepsy and epileptic syndromes with complex partial seizures, intractable, without status epilepticus (principal); G43.019 Migraine without aura, intractable, without status migrainosus; J34.2 Deviated nasal septum; H74.8X1 Other specified disorders of right middle ear and mastoid

== ENCOUNTER → 2020-06-21 | Outpatient (CLI) | payer MEDICARE, MEDICAID | LOC: ECHO 10:00 | PROVIDERS: ATTEND Family Medicine | DX: I50.30 Unspecified diastolic (congestive) heart failure (principal); I51.7 Cardiomegaly; R06.01 Orthopnea ==

== ENCOUNTER 2020-07-05 19:19 | Emergency (ER) | payer MEDICARE, MEDICAID ==
[2020-07-05] MEDS ORDERED: NEOMYCIN-BACITRACIN-POLYMYXIN 0.9 GM UD TOP ONE (19:50)
--- NOTE | 2020-07-05 19:57 | ED.PDOC ---
History of Present Illness - General Chief Complaint: ENT Problem Stated Complaint: nosebleed Time Seen by Provider: 07/05/20 19:20 Source: patient Exam Limitations: no limitations - History of Present Illness Initial Comments: The patient is a 34-year-old female presents emergency room secondary to recurrent episodes of epistaxis bilaterally today. The patient does have a history of recurrent episodes of epistaxis in the past. No history of any significant bleeding disorder. On examination today she is currently hemostatic. It appears that she has mild excoriated areas just to the inside of the nares along the nasal septum. Scabs have formed. No evidence of blood more proximally. No bruising elsewhere. No bleeding from the gums. No blood in the stool or urine according to her. Timing/Duration: 4-6 hours Severity: mild Improving Factors: nothing Worsening Factors: nothing Associated Symptoms: denies symptoms Allergies/Adverse Reactions: Allergies NO KNOWN ALLERGY Allergy (Verified 11/14/19 18:31) Home Medications: Ambulatory Orders Loratadine [Claritin] 10 mg PO BEDTIME 01/13/19 Montelukast [Singulair] 10 mg PO DAILY 01/13/19 Oxybutynin Chloride [Oxybutynin Chloride ER] 10 mg PO BEDTIME 01/13/19 Pantoprazole Sodium [Pantoprazole Sodium Dr] 40 mg PO DAILY 01/13/19 Pramipexole Dihydrochloride [Pramipexole Dihydrochlori] 0.5 mg PO BID 01/13/19 Linaclotide [Linzess] 72 mcg PO DAILY 03/26/19 Norethindrone (Contraceptive) [Deblitane] 0.35 mg PO DAILY 03/26/19 Oxcarbazepine 150 mg PO BID 03/26/19 Spironolactone 100 mg PO DAILY 03/26/19 Amoxicillin & Pot Clavulanate [Augmentin Tab] 875 mg PO BID 04/21/19 Cyclobenzaprine HCl [Cyclobenzaprine Hydrochlo] 10 mg PO BEDTIME 04/21/19 Ibuprofen [Ibu] 800 mg PO TID 04/21/19 Naproxen [EC-Naproxen] 500 mg PO 04/21/19 Norethindrone (Contraceptive) [Deblitane] 0.35 mg PO DAILY 04/21/19 Hydrocortisone (Topical) [Curad Hydrocortisone] 1 % EX BID #1 tube 06/11/19 Oxymetazoline HCl [Afrin Nasal [place]] 0.05 % .ROUTE Q12HR #1 spr 06/18/19 Acetaminophen W/ Codeine [Tylenol W/ CODEINE #3] 1 ea PO TID PRN #12 09/09/19 Clindamycin HCl 300 mg PO TID 7 Days #21 cap 09/09/19 Naproxen [Naprosyn] 500 mg PO BID #10 tab 10/25/19 Review of Systems - Review of Systems Constitutional: States: no symptoms reported EENTM: States: see HPI Respiratory: States: no symptoms reported Cardiology: States: no symptoms reported Gastrointestinal/Abdominal: States: no symptoms reported Genitourinary: States: no symptoms reported Musculoskeletal: States: no symptoms reported Skin: States: no symptoms reported Neurological: States: no symptoms reported All other Systems: No Change from Baseline Past Medical History (General) - Patient Medical History Hx Seizures: No Hx Stroke: No Hx Dementia: No Hx Asthma: No Hx of COPD: No Hx Cardiac Disorders: No Hx Congestive Heart Failure: No Hx Pacemaker: No Hx Hypertension: No Hx Thyroid Disease: No Hx Diabetes: No Hx Gastroesophageal Reflux: Yes Hx Renal Disease: No Hx Cancer: No Hx of HIV: No Hx Hepatitis C: No Hx MRSA: No MRSA Source:: Wound - Vaccination History Hx Tetanus, Diphtheria Vaccination: Yes Hx Influenza Vaccination: Yes Hx Pneumococcal Vaccination: No - Social History Hx Tobacco Use: No Hx Chewing Tobacco Use: No Hx Alcohol Use: No Hx Substance Use: No Hx Substance Use Treatment: No Hx Depression: No Hx Physical Abuse: No Hx Emotional Abuse: No Hx Suspected Abuse: No - Female History Hx Last Menstrual Period: 07/29/18 Patient : No Family Medical History - Family History Mother Family History: Unknown Living Status: Unknown Hx Family;Other: adopted Physical Exam - Physical Exam General Appearance: Alert, Comfortable, No apparent distress Eye Exam: bilateral normal Ears, Nose, Throat: hearing grossly normal, normal pharynx, other - See history of present illness Neck: full range of motion, supple Respiratory: no respiratory distress, no accessory muscle use Cardiovascular/Chest: normal peripheral pulses, no edema Peripheral Pulses: radial,right: 2+, radial,left: 2+ Gastrointestinal/Abdominal: other - Obese Rectal Exam: deferred Extremity: normal range of motion, no pedal edema, normal capillary refill 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 She is currently hemostatic. Neosporin was applied to both areas. The patient can apply Vaseline to bilateral nares 2-3 times daily to help reduce recurrence. Additionally she can use saline nasal spray every few hours. She needs to avoid sleeping underneath a fan or vent which can dry out the lining of the nose and increase bleeding. ER warnings are given for any significant worsening. tanisha hernandez [id number] Departure - Departure Clinical Impression: Frequent epistaxis Disposition: Discharge to Home or Self Care Condition: Fair Departure Forms: ED Discharge - Pt. Copy, Patient Portal Self Enrollment Instructions: DI for Ear Pain-Adult, Nosebleeds (DC) Diet: regular diet Activity: increase activity as tolerated Referrals: CAROL KENT MD [Primary Care Provider] - 1-2 Weeks Home Medications: Ambulatory Orders Loratadine [Claritin] 10 mg PO BEDTIME 01/13/19 Montelukast [Singulair] 10 mg PO DAILY 01/13/19 Oxybutynin Chloride [Oxybutynin Chloride ER] 10 mg PO BEDTIME 01/13/19 Pantoprazole Sodium [Pantoprazole Sodium Dr] 40 mg PO DAILY 01/13/19 Pramipexole Dihydrochloride [Pramipexole Dihydrochlori] 0.5 mg PO BID 01/13/19 Linaclotide [Linzess] 72 mcg PO DAILY 03/26/19 Norethindrone (Contraceptive) [Deblitane] 0.35 mg PO DAILY 03/26/19 Oxcarbazepine 150 mg PO BID 03/26/19 Spironolactone 100 mg PO DAILY 03/26/19 Amoxicillin & Pot Clavulanate [Augmentin Tab] 875 mg PO BID 04/21/19 Cyclobenzaprine HCl [Cyclobenzaprine Hydrochlo] 10 mg PO BEDTIME 04/21/19 Ibuprofen [Ibu] 800 mg PO TID 04/21/19 Naproxen [EC-Naproxen] 500 mg PO 04/21/19 Norethindrone (Contraceptive) [Deblitane] 0.35 mg PO DAILY 04/21/19 Hydrocortisone (Topical) [Curad Hydrocortisone] 1 % EX BID #1 tube 06/11/19 Oxymetazoline HCl [Afrin Nasal [place]] 0.05 % .ROUTE Q12HR #1 spr 06/18/19 Acetaminophen W/ Codeine [Tylenol W/ CODEINE #3] 1 ea PO TID PRN #12 09/09/19 Clindamycin HCl 300 mg PO TID 7 Days #21 cap 09/09/19 Naproxen [Naprosyn] 500 mg PO BID #10 tab 10/25/19 Additional Instructions: The patient is a 34-year-old female presented to emergency room secondary to epistaxis from lower nasal septum bilaterally. She is currently hemostatic. Neosporin was applied to both areas. The patient can apply Vaseline to bilateral nares 2-3 times daily to help reduce recurrence. Additionally she can use saline nasal spray every few hours. She needs to avoid sleeping underneath a fan or vent which can dry out the lining of the nose and increase bleeding. ER warnings are given for any significant worsening.
[2020-07-05 20:04] VITALS: BP 136/95; TEMP 98; O2SAT 97
== END 2020-07-05 20:04 | disposition home or self-care (01) ==
LOC: ER 19:19
DX: R04.0 Epistaxis (principal)

== ENCOUNTER 2020-07-17 21:55 | Emergency (ER) | payer MEDICARE, MEDICAID ==
[2020-07-17] MEDS ORDERED: AMOXICILLIN & POT CLAVULANATE 875 MG TAB PO ONE (22:23)
[2020-07-17] MEDS ORDERED: KETOROLAC TROMETHAMINE INJ 30 MG/ML VIAL IM ONE (22:23)
[2020-07-17 22:26] VITALS: TEMP 96.7; O2SAT 96
--- NOTE | 2020-07-17 22:34 | ED.PDOC ---
History of Present Illness - General Chief Complaint: Respiratory Problem Stated Complaint: cough, SOB Time Seen by Provider: 07/17/20 22:17 Source: patient, RN notes reviewed, Vital Signs reviewed Exam Limitations: no limitations - History of Present Illness Initial Comments: Patient is a 34-year-old morbidly obese white female who presents with complaints of sore throat x2 days. Patient also complains of cough starting today with associated chest pain. The sore throat is burning in nature., Mild in intensity, nonradiating. The throat pain is worse with swallowing. Nothing makes it better.Chest pain is sharp and stabbing in nature, mild in intensity. Worse with deep inspiration, cough or movement. No change with exertion. Cough is nonproductive. Patient was seen at a local clinic today and diagnosed with strep throat and antibiotics were called into the pharmacy but they were closed by the time she got there so she will have to fill them tomorrow. Timing/Duration: 24 hours Severity: mild Improving Factors: nothing Worsening Factors: other - Cough and deep inspiration Associated Symptoms: chest pain, cough Allergies/Adverse Reactions: Allergies NO KNOWN ALLERGY Allergy (Verified 11/14/19 18:31) Home Medications: Ambulatory Orders Loratadine [Claritin] 10 mg PO BEDTIME 01/13/19 Montelukast [Singulair] 10 mg PO DAILY 01/13/19 Oxybutynin Chloride [Oxybutynin Chloride ER] 10 mg PO BEDTIME 01/13/19 Pantoprazole Sodium [Pantoprazole Sodium Dr] 40 mg PO DAILY 01/13/19 Pramipexole Dihydrochloride [Pramipexole Dihydrochlori] 0.5 mg PO BID 01/13/19 Linaclotide [Linzess] 72 mcg PO DAILY 03/26/19 Norethindrone (Contraceptive) [Deblitane] 0.35 mg PO DAILY 03/26/19 Oxcarbazepine 150 mg PO BID 03/26/19 Spironolactone 100 mg PO DAILY 03/26/19 Amoxicillin & Pot Clavulanate [Augmentin Tab] 875 mg PO BID 04/21/19 Cyclobenzaprine HCl [Cyclobenzaprine Hydrochlo] 10 mg PO BEDTIME 04/21/19 Ibuprofen [Ibu] 800 mg PO TID 04/21/19 Naproxen [EC-Naproxen] 500 mg PO 04/21/19 Norethindrone (Contraceptive) [Deblitane] 0.35 mg PO DAILY 04/21/19 Hydrocortisone (Topical) [Curad Hydrocortisone] 1 % EX BID #1 tube 06/11/19 Oxymetazoline HCl [Afrin Nasal [place]] 0.05 % .ROUTE Q12HR #1 spr 06/18/19 Acetaminophen W/ Codeine [Tylenol W/ CODEINE #3] 1 ea PO TID PRN #12 09/09/19 Clindamycin HCl 300 mg PO TID 7 Days #21 cap 09/09/19 Naproxen [Naprosyn] 500 mg PO BID #10 tab 10/25/19 Review of Systems - Review of Systems Constitutional: States: no symptoms reported, see HPI. Denies: chills, fever, malaise, weakness EENTM: States: see HPI, throat pain. Denies: eye pain, blurred vision, double vision, throat swelling Respiratory: States: see HPI, cough. Denies: short of breath, stridor, wheezing Cardiology: States: see HPI, chest pain. Denies: palpitations, syncope Gastrointestinal/Abdominal: States: no symptoms reported. Denies: abdominal pain, nausea, vomiting Genitourinary: States: no symptoms reported. Denies: dysuria, frequency Musculoskeletal: States: no symptoms reported. Denies: back pain, joint pain, neck pain Skin: States: no symptoms reported. Denies: change in color, rash Neurological: States: no symptoms reported. Denies: tingling, tremors, weakness Endocrine: States: no symptoms reported. Denies: increased hunger, increased thirst, increased urine Hematologic/Lymphatic: States: no symptoms reported. Denies: blood clots, easy bleeding All other Systems: Reviewed and Negative Past Medical History (General) - Patient Medical History Hx Seizures: No Hx Stroke: No Hx Dementia: No Hx Asthma: No Hx of COPD: No Hx Cardiac Disorders: No Hx Congestive Heart Failure: No Hx Pacemaker: No Hx Hypertension: Yes Hx Thyroid Disease: No Hx Diabetes: No Hx Gastroesophageal Reflux: Yes Hx Renal Disease: No Hx Cancer: No Hx of HIV: No Hx Hepatitis C: No Hx MRSA: No MRSA Source:: Wound Surgical History: cholecystectomy, other - Vaccination History Hx Tetanus, Diphtheria Vaccination: Yes Hx Influenza Vaccination: Yes Hx Pneumococcal Vaccination: No Immunizations Up to Date: No - Social History Hx Tobacco Use: No Hx Chewing Tobacco Use: No Hx Alcohol Use: No Hx Substance Use: No Hx Substance Use Treatment: No Hx Depression: No Feels Threatened In Home Enviroment: No Feels Threatened In a Relationship: No Hx Physical Abuse: No Hx Emotional Abuse: No Hx Suspected Abuse: No - Activities of Daily Living Hospice Agency (if applicable):: None - Female History Patient is a Female of Child Bearing Age (10 -59 yrs old): Yes Hx Last Menstrual Period: 07/29/18 Patient : No Family Medical History - Family History Mother Family History: Unknown Living Status: Unknown Hx Family;Other: adopted Physical Exam - Physical Exam General Appearance: Alert, Comfortable, No apparent distress, Obese, Well Developed, Well Groomed, Well Hydrated, Well Nourished Eye Exam: bilateral abnormal EOM Ears, Nose, Throat: hearing grossly normal, pharyngeal erythema, tonsillar exudate, tonsillar swelling Neck: non-tender, full range of motion, lymphadenopathy (R), lymphadenopathy (L) Respiratory: chest non-tender, lungs clear, normal breath sounds, no respiratory distress, no accessory muscle use Cardiovascular/Chest: normal peripheral pulses, no edema, no gallop, no JVD, no murmur, tachycardia Peripheral Pulses: radial,right: 2+, radial,left: 2+ Gastrointestinal/Abdominal: normal bowel sounds, non tender, soft, distended - Morbidly obese Back Exam: normal inspection, no CVA tenderness, no vertebral tenderness Extremity: normal range of motion, non-tender, normal inspection 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 07/17/20 22:51 Patient diagnosed with strep throat at outside clinic. Chest pain is associated with her cough consistent with a viral upper respiratory tract infection. She has costochondritis. EKG does not show any ischemia. Patient already has antibiotics at pharmacy for her strep throat. Patient given IM Toradol and Aug mentin here and is feeling better. Plan on discharge home at this time with follow-up with her clinic. Patient voices understanding and agreement with the plan of care. Richie Genao M.D. #[id number] - Results/Orders Results/Orders: EKG performed on 17 July 2020 at 2245 hrs.: Sinus tachycardia at 104 bpm, normal axis deviation, no ST or T wave changes concerning for ischemia, no acute ischemia, otherwise normal EKG. No comparison EKG available at this time. Departure - Departure Clinical Impression: Viral upper respiratory tract infection with cough, Costochondritis, acute Time of Disposition: 22:55 Disposition: Discharge to Home or Self Care Condition: Good Departure Forms: ED Discharge - Pt. Copy, Patient Portal Self Enrollment Instructions: Viral Upper Respiratory Infection, Adult (DC), Costochondritis (DC) Diet: resume usual diet Activity: increase activity as tolerated Referrals: CAROL KENT MD [Primary Care Provider] - 1-5 Days Home Medications: Ambulatory Orders Loratadine [Claritin] 10 mg PO BEDTIME 01/13/19 Montelukast [Singulair] 10 mg PO DAILY 01/13/19 Oxybutynin Chloride [Oxybutynin Chloride ER] 10 mg PO BEDTIME 01/13/19 Pantoprazole Sodium [Pantoprazole Sodium Dr] 40 mg PO DAILY 01/13/19 Pramipexole Dihydrochloride [Pramipexole Dihydrochlori] 0.5 mg PO BID 01/13/19 Linaclotide [Linzess] 72 mcg PO DAILY 03/26/19 Norethindrone (Contraceptive) [Deblitane] 0.35 mg PO DAILY 03/26/19 Oxcarbazepine 150 mg PO BID 03/26/19 Spironolactone 100 mg PO DAILY 03/26/19 Amoxicillin & Pot Clavulanate [Augmentin Tab] 875 mg PO BID 04/21/19 Cyclobenzaprine HCl [Cyclobenzaprine Hydrochlo] 10 mg PO BEDTIME 04/21/19 Ibuprofen [Ibu] 800 mg PO TID 04/21/19 Naproxen [EC-Naproxen] 500 mg PO 04/21/19 Norethindrone (Contraceptive) [Deblitane] 0.35 mg PO DAILY 04/21/19 Hydrocortisone (Topical) [Curad Hydrocortisone] 1 % EX BID #1 tube 06/11/19 Oxymetazoline HCl [Afrin Nasal [place]] 0.05 % .ROUTE Q12HR #1 spr 06/18/19 Acetaminophen W/ Codeine [Tylenol W/ CODEINE #3] 1 ea PO TID PRN #12 09/09/19 Clindamycin HCl 300 mg PO TID 7 Days #21 cap 09/09/19 Naproxen [Naprosyn] 500 mg PO BID #10 tab 10/25/19
[2020-07-17 23:03] VITALS: BP 121/70
== END 2020-07-17 23:06 | disposition home or self-care (01) ==
LOC: ER 21:55
DX: J06.9 Acute upper respiratory infection, unspecified (principal); M94.0 Chondrocostal junction syndrome [Tietze]; R00.0 Tachycardia, unspecified; I10 Essential (primary) hypertension; K21.9 Gastro-esophageal reflux disease without esophagitis; Z79.899 Other long term (current) drug therapy
CPT/HCPCS: 93005; J1885

== ENCOUNTER 2020-07-28 21:11 | Emergency (ER) | payer MEDICARE, MEDICAID ==
[2020-07-28 22:05] VITALS: TEMP 98.3; O2SAT 94
[2020-07-28] MEDS ORDERED: LACTULOSE SYRUP 20 GM/30 ML UD PO ONE (23:12)
--- NOTE | 2020-07-28 23:15 | ED.PDOC ---
History of Present Illness - General Chief Complaint: GI Problem Time Seen by Provider: 07/28/20 23:11 Source: patient Exam Limitations: no limitations - History of Present Illness Initial Comments: The patient is a 34-year-old female presented emergency room secondary to bleeding from a hemorrhoid for about 4 to 5 hours. Bleeding has essentially stopped at this point. No rectal trauma. She has been having some constipation. Exam here with a delivery professional shows a very small thrombosed hemorrhoid at about 11:00 that is hemostatic. Timing/Duration: 4-6 hours Severity: mild Improving Factors: nothing Worsening Factors: nothing Associated Symptoms: denies symptoms Allergies/Adverse Reactions: Allergies NO KNOWN ALLERGY Allergy (Verified 11/14/19 18:31) Home Medications: Ambulatory Orders Loratadine [Claritin] 10 mg PO BEDTIME 01/13/19 Montelukast [Singulair] 10 mg PO DAILY 01/13/19 Oxybutynin Chloride [Oxybutynin Chloride ER] 10 mg PO BEDTIME 01/13/19 Pantoprazole Sodium [Pantoprazole Sodium Dr] 40 mg PO DAILY 01/13/19 Pramipexole Dihydrochloride [Pramipexole Dihydrochlori] 0.5 mg PO BID 01/13/19 Linaclotide [Linzess] 72 mcg PO DAILY 03/26/19 Norethindrone (Contraceptive) [Deblitane] 0.35 mg PO DAILY 03/26/19 Oxcarbazepine 150 mg PO BID 03/26/19 Spironolactone 100 mg PO DAILY 03/26/19 Amoxicillin & Pot Clavulanate [Augmentin Tab] 875 mg PO BID 04/21/19 Cyclobenzaprine HCl [Cyclobenzaprine Hydrochlo] 10 mg PO BEDTIME 04/21/19 Ibuprofen [Ibu] 800 mg PO TID 04/21/19 Naproxen [EC-Naproxen] 500 mg PO 04/21/19 Norethindrone (Contraceptive) [Deblitane] 0.35 mg PO DAILY 04/21/19 Hydrocortisone (Topical) [Curad Hydrocortisone] 1 % EX BID #1 tube 06/11/19 Oxymetazoline HCl [Afrin Nasal [place]] 0.05 % .ROUTE Q12HR #1 spr 06/18/19 Acetaminophen W/ Codeine [Tylenol W/ CODEINE #3] 1 ea PO TID PRN #12 09/09/19 Clindamycin HCl 300 mg PO TID 7 Days #21 cap 09/09/19 Naproxen [Naprosyn] 500 mg PO BID #10 tab 10/25/19 Polyethylene Glycol 3350 [Miralax] 17 gm PO DAILY 7 Days #20 pckt 07/28/20 Review of Systems - Review of Systems Constitutional: States: no symptoms reported EENTM: States: no symptoms reported Respiratory: States: no symptoms reported Cardiology: States: no symptoms reported Gastrointestinal/Abdominal: States: constipation Genitourinary: States: no symptoms reported Musculoskeletal: States: no symptoms reported Skin: States: no symptoms reported Neurological: States: no symptoms reported Endocrine: States: no symptoms reported All other Systems: No Change from Baseline Past Medical History (General) - Patient Medical History Hx Seizures: No Hx Stroke: No Hx Dementia: No Hx Asthma: No Hx of COPD: No Hx Cardiac Disorders: No Hx Congestive Heart Failure: No Hx Pacemaker: No Hx Hypertension: Yes Hx Thyroid Disease: No Hx Diabetes: No Hx Gastroesophageal Reflux: Yes Hx Renal Disease: No Hx Cancer: No Hx of HIV: No Hx Hepatitis C: No Hx MRSA: No MRSA Source:: Wound - Vaccination History Hx Tetanus, Diphtheria Vaccination: Yes Hx Influenza Vaccination: Yes Hx Pneumococcal Vaccination: No - Social History Hx Tobacco Use: No Hx Chewing Tobacco Use: No Hx Alcohol Use: No Hx Substance Use: No Hx Substance Use Treatment: No Hx Depression: No Hx Physical Abuse: No Hx Emotional Abuse: No Hx Suspected Abuse: No - Female History Hx Last Menstrual Period: 07/29/18 Patient : No Family Medical History - Family History Mother Family History: Unknown Living Status: Unknown Hx Family;Other: adopted Physical Exam - Physical Exam General Appearance: Alert, Comfortable, No apparent distress Eye Exam: bilateral normal Ears, Nose, Throat: hearing grossly normal Respiratory: no respiratory distress, no accessory muscle use Cardiovascular/Chest: normal peripheral pulses, no edema Peripheral Pulses: radial,right: 2+, radial,left: 2+ Gastrointestinal/Abdominal: soft - Obese Rectal Exam: other - See history of present illness Extremity: normal range of motion, normal capillary refill 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 The patient is going to be written for lactulose for once daily use for about 5 days. This well for constipation. After that she needs to start taking MiraLAX up to 3 times weekly to help reduce constipation. The patient can use Preparation H 3 times daily as well to help reduce irritation from the current hemorrhoid. ER warnings are given. Keep follow-up with primary care doctor as routine. tanisha hernandez [id number] Departure - Departure Clinical Impression: Hemorrhoids Qualifiers: Hemorrhoid type: unspecified Qualified Code(s): K64.9 - Unspecified hemorrhoids Constipation Qualifiers: Constipation type: slow transit constipation Qualified Code(s): K59.01 - Slow transit constipation Disposition: Discharge to Home or Self Care Condition: Fair Departure Forms: ED Discharge - Pt. Copy, Patient Portal Self Enrollment Instructions: Hemorrhoids (DC), Constipation, Adult (DC) Diet: other - High-fiber diet Activity: increase activity as tolerated Referrals: CAROL KENT MD [Primary Care Provider] - 1-2 Weeks Prescriptions: Polyethylene Glycol 3350 [Miralax] 17 gm PO DAILY 7 Days #20 pckt Home Medications: Ambulatory Orders Loratadine [Claritin] 10 mg PO BEDTIME 01/13/19 Montelukast [Singulair] 10 mg PO DAILY 01/13/19 Oxybutynin Chloride [Oxybutynin Chloride ER] 10 mg PO BEDTIME 01/13/19 Pantoprazole Sodium [Pantoprazole Sodium Dr] 40 mg PO DAILY 01/13/19 Pramipexole Dihydrochloride [Pramipexole Dihydrochlori] 0.5 mg PO BID 01/13/19 Linaclotide [Linzess] 72 mcg PO DAILY 03/26/19 Norethindrone (Contraceptive) [Deblitane] 0.35 mg PO DAILY 03/26/19 Oxcarbazepine 150 mg PO BID 03/26/19 Spironolactone 100 mg PO DAILY 03/26/19 Amoxicillin & Pot Clavulanate [Augmentin Tab] 875 mg PO BID 04/21/19 Cyclobenzaprine HCl [Cyclobenzaprine Hydrochlo] 10 mg PO BEDTIME 04/21/19 Ibuprofen [Ibu] 800 mg PO TID 04/21/19 Naproxen [EC-Naproxen] 500 mg PO 04/21/19 Norethindrone (Contraceptive) [Deblitane] 0.35 mg PO DAILY 04/21/19 Hydrocortisone (Topical) [Curad Hydrocortisone] 1 % EX BID #1 tube 06/11/19 Oxymetazoline HCl [Afrin Nasal [place]] 0.05 % .ROUTE Q12HR #1 spr 06/18/19 Acetaminophen W/ Codeine [Tylenol W/ CODEINE #3] 1 ea PO TID PRN #12 09/09/19 Clindamycin HCl 300 mg PO TID 7 Days #21 cap 09/09/19 Naproxen [Naprosyn] 500 mg PO BID #10 tab 10/25/19 Polyethylene Glycol 3350 [Miralax] 17 gm PO DAILY 7 Days #20 pckt 07/28/20 Additional Instructions: The patient is a 34-year-old female presenting to the emergency room with what is now a hemorrhoid that has ceased bleeding along with some constipation. The patient is going to be written for lactulose for once daily use for about 5 days. This well for constipation. After that she needs to start taking MiraLAX up to 3 times weekly to help reduce constipation. The patient can use Preparation H 3 times daily as well to help reduce irritation from the current hemorrhoid. ER warnings are given. Keep follow-up with primary care doctor as routine.
[2020-07-28 23:20] VITALS: BP 112/94
== END 2020-07-28 23:19 | disposition home or self-care (01) ==
LOC: ER 21:11
DX: K64.5 Perianal venous thrombosis (principal); K59.01 Slow transit constipation; I10 Essential (primary) hypertension; K21.9 Gastro-esophageal reflux disease without esophagitis; Z79.899 Other long term (current) drug therapy

== ENCOUNTER 2020-08-05 14:47 | Emergency (ER) | payer MEDICARE, MEDICAID ==
[2020-08-05] MEDS ORDERED: ONDANSETRON ODT 8 MG TAB SL ONE (15:18)
[2020-08-05] MEDS ORDERED: SODIUM CHLORIDE 0.9% 1000ML 1,000 ML IVS ONE (15:18)
[2020-08-05] MEDS ORDERED: DEXAMETHASONE INJ 4 MG/ML VIAL IV ONE (16:57)
[2020-08-05] MEDS ORDERED: SCOPOLAMINE PATCH 1.5MG 1 EA TD ONE (17:00)
[2020-08-05] MEDS ORDERED: predniSONE 20 MG TAB PO ONE (17:11)
[2020-08-05] MEDS ORDERED: AZITHROMYCIN 250 MG TAB PO ONE (17:11)
--- NOTE | 2020-08-05 17:18 | ED.PDOC ---
History of Present Illness - General Chief Complaint: General Stated Complaint: nausea, abdominal pain, headache Time Seen by Provider: 08/05/20 14:49 Source: patient Exam Limitations: no limitations - History of Present Illness Initial Comments: The patient is a 34-year-old female presented emergency room secondary to episodes of nausea and vomiting for the last 3 to 4 days as well as some worsening of her chronic headaches. No fevers and no shortness of breath. No productive cough. No chest pain. She has not a diabetic. She is obese. Timing/Duration: other - 5 days Severity: moderate Improving Factors: nothing Worsening Factors: nothing Associated Symptoms: headaches, loss of appetite, malaise, nausea/vomiting Allergies/Adverse Reactions: Allergies NO KNOWN ALLERGY Allergy (Verified 11/14/19 18:31) Home Medications: Ambulatory Orders Loratadine [Claritin] 10 mg PO BEDTIME 01/13/19 Montelukast [Singulair] 10 mg PO DAILY 01/13/19 Oxybutynin Chloride [Oxybutynin Chloride ER] 10 mg PO BEDTIME 01/13/19 Pantoprazole Sodium [Pantoprazole Sodium Dr] 40 mg PO DAILY 01/13/19 Pramipexole Dihydrochloride [Pramipexole Dihydrochlori] 0.5 mg PO BID 01/13/19 Linaclotide [Linzess] 72 mcg PO DAILY 03/26/19 Norethindrone (Contraceptive) [Deblitane] 0.35 mg PO DAILY 03/26/19 Oxcarbazepine 150 mg PO BID 03/26/19 Spironolactone 100 mg PO DAILY 03/26/19 Amoxicillin & Pot Clavulanate [Augmentin Tab] 875 mg PO BID 04/21/19 Cyclobenzaprine HCl [Cyclobenzaprine Hydrochlo] 10 mg PO BEDTIME 04/21/19 Ibuprofen [Ibu] 800 mg PO TID 04/21/19 Naproxen [EC-Naproxen] 500 mg PO 04/21/19 Norethindrone (Contraceptive) [Deblitane] 0.35 mg PO DAILY 04/21/19 Hydrocortisone (Topical) [Curad Hydrocortisone] 1 % EX BID #1 tube 06/11/19 Oxymetazoline HCl [Afrin Nasal [place]] 0.05 % .ROUTE Q12HR #1 spr 06/18/19 Acetaminophen W/ Codeine [Tylenol W/ CODEINE #3] 1 ea PO TID PRN #12 09/09/19 Clindamycin HCl 300 mg PO TID 7 Days #21 cap 09/09/19 Naproxen [Naprosyn] 500 mg PO BID #10 tab 10/25/19 Polyethylene Glycol 3350 [Miralax] 17 gm PO DAILY 7 Days #20 pckt 07/28/20 Azithromycin 500 mg PO DAILY #5 tab 08/05/20 Famotidine 20 mg PO DAILY #30 tab 08/05/20 Ondansetron Odt [Zofran ODT] 4 mg PO Q8HR PRN #5 tab 08/05/20 predniSONE [Prednisone] 20 mg PO DAILY #5 tab 08/05/20 Review of Systems - Review of Systems Constitutional: States: malaise EENTM: States: no symptoms reported Respiratory: States: no symptoms reported Cardiology: States: no symptoms reported Gastrointestinal/Abdominal: States: nausea, vomiting Genitourinary: States: no symptoms reported Musculoskeletal: States: no symptoms reported Skin: States: no symptoms reported Neurological: States: headache Endocrine: States: no symptoms reported All other Systems: No Change from Baseline Past Medical History (General) - Patient Medical History Hx Seizures: No Hx Stroke: No Hx Dementia: No Hx Asthma: No Hx of COPD: No Hx Cardiac Disorders: No Hx Congestive Heart Failure: No Hx Pacemaker: No Hx Hypertension: Yes Hx Thyroid Disease: No Hx Diabetes: No Hx Gastroesophageal Reflux: Yes Hx Renal Disease: No Hx Cancer: No Hx of HIV: No Hx Hepatitis C: No Hx MRSA: No MRSA Source:: Wound Surgical History: cholecystectomy - Vaccination History Hx Tetanus, Diphtheria Vaccination: Yes Hx Influenza Vaccination: Yes Hx Pneumococcal Vaccination: No Immunizations Up to Date: No - Social History Hx Tobacco Use: No Hx Chewing Tobacco Use: No Hx Alcohol Use: No Hx Substance Use: No Hx Substance Use Treatment: No Hx Depression: No Hx Physical Abuse: No Hx Emotional Abuse: No Hx Suspected Abuse: No - Female History Hx Last Menstrual Period: 07/29/18 Patient : No Family Medical History - Family History Mother Family History: Unknown Living Status: Unknown Hx Family;Other: adopted Physical Exam - Physical Exam General Appearance: Alert, Comfortable, No apparent distress Eye Exam: bilateral normal Ears, Nose, Throat: hearing grossly normal, normal pharynx Neck: full range of motion, supple Respiratory: lungs clear, normal breath sounds, no respiratory distress, no accessory muscle use Cardiovascular/Chest: normal peripheral pulses, regular rate, rhythm, no edema Peripheral Pulses: radial,right: 2+, radial,left: 2+ Gastrointestinal/Abdominal: non tender - Morbidly obese, soft Rectal Exam: deferred Back Exam: no CVA tenderness, no vertebral tenderness Extremity: normal range of motion, non-tender, normal inspection, no pedal edema, normal capillary refill 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 She is to keep her self well-hydrated and maintain a bland diet. We are placing a scopolamine patch on her to help control nausea for the next few days and she will also be written for some Zofran. She will be written for famotidine to help reduce stomach acid. She did receive a liter of IV fluids for mild dehydration. She is going to be placed on prednisone and azithromycin as well based upon her chest x-ray though she is showing no respiratory distress or hypoxia at this time. I do want her to follow-up with her primary care doctor on Saturday for a repeat evaluation. Obviously if the patient is worsening then other therapeutics may be warranted. She did receive first doses of above medications here today. ER warnings are given. She does need to isolate for another 10 days at least. [email or web address] [id number] - Results/Orders Results/Orders: Laboratory Tests 08/05/20 08/05/20 08/05/20 15:35 15:35 15:35 WBC 3.1 L RBC 4.36 Hgb 11.9 L Hct 35.1 L MCV 80.4 L MCH 27.3 MCHC 33.9 RDW 16.1 H Plt Count 183 MPV 7.9 Absolute Neuts (auto) 1.80 Absolute Lymphs (auto) 1.10 Absolute Monos (auto) 0.20 Absolute Eos (auto) 0.00 Absolute Basos (auto) 0.00 Neutrophils % 58.1 Lymphocytes % 36.1 Monocytes % 5.1 Eosinophils % 0.3 L Basophils % 0.4 Sodium 139 Potassium 3.5 L Chloride 102 Carbon Dioxide 25 Anion Gap 15.5 BUN 11 Creatinine 0.53 L BUN/Creatinine Ratio 20.8 H Random Glucose 111 H Hemoglobin A1c Serum Osmolality 277.6 Lactic Acid 1.2 Calcium 8.2 L Magnesium 1.6 L Total Bilirubin 0.3 AST 45 H ALT 38 Alkaline Phosphatase 55 Creatine Kinase 65 B-Natriuretic Peptide < 15.0 Serum Total Protein 7.2 Albumin 3.6 Globulin 3.6 H Albumin/Globulin Ratio 1.0 L Amylase 31 Lipase 27 Serum HCG, Qual 08/05/20 08/05/20 15:35 15:35 WBC RBC Hgb Hct MCV MCH MCHC RDW Plt Count MPV Absolute Neuts (auto) Absolute Lymphs (auto) Absolute Monos (auto) Absolute Eos (auto) Absolute Basos (auto) Neutrophils % Lymphocytes % Monocytes % Eosinophils % Basophils % Sodium Potassium Chloride Carbon Dioxide Anion Gap BUN Creatinine BUN/Creatinine Ratio Random Glucose Hemoglobin A1c 6.0 Serum Osmolality Lactic Acid Calcium Magnesium Total Bilirubin AST ALT Alkaline Phosphatase Creatine Kinase B-Natriuretic Peptide Serum Total Protein Albumin Globulin Albumin/Globulin Ratio Amylase Lipase Serum HCG, Qual Negative Acute abdominal series shows no evidence of obstruction. She does have some hazy infiltrates to the left upper lobe. Limitation by body habitus. EKG shows mild sinus tachycardia 108 bpm. Normal axis. Normal R wave progression. Mild left atrial dilation. Normal QT interval. No ST segment changes indicative of acute ischemia. Lone T wave inversions in lead III. - EKG/XRAY/CT CT Ordered: No Departure - Departure Clinical Impression: Coronavirus infection, Viral gastroenteritis Headache Qualifiers: Headache type: unspecified Headache chronicity pattern: acute headache Intractability: not intractable Qualified Code(s): R51.9 - Headache, unspecified Disposition: Discharge to Home or Self Care Condition: Fair Departure Forms: ED Discharge - Pt. Copy, Patient Portal Self Enrollment Instructions: Coronavirus Disease 2019 (COVID-19) Diet: bland diet Activity: increase activity as tolerated Referrals: CAROL KENT MD [Primary Care Provider] - 1-2 Weeks Prescriptions: Ondansetron Odt [Zofran ODT] 4 mg PO Q8HR PRN #5 tab PRN Reason: Nausea--Moderate Azithromycin 500 mg PO DAILY #5 tab Famotidine 20 mg PO DAILY #30 tab predniSONE [Prednisone] 20 mg PO DAILY #5 tab Home Medications: Ambulatory Orders Loratadine [Claritin] 10 mg PO BEDTIME 01/13/19 Montelukast [Singulair] 10 mg PO DAILY 01/13/19 Oxybutynin Chloride [Oxybutynin Chloride ER] 10 mg PO BEDTIME 01/13/19 Pantoprazole Sodium [Pantoprazole Sodium Dr] 40 mg PO DAILY 01/13/19 Pramipexole Dihydrochloride [Pramipexole Dihydrochlori] 0.5 mg PO BID 01/13/19 Linaclotide [Linzess] 72 mcg PO DAILY 03/26/19 Norethindrone (Contraceptive) [Deblitane] 0.35 mg PO DAILY 03/26/19 Oxcarbazepine 150 mg PO BID 03/26/19 Spironolactone 100 mg PO DAILY 03/26/19 Amoxicillin & Pot Clavulanate [Augmentin Tab] 875 mg PO BID 04/21/19 Cyclobenzaprine HCl [Cyclobenzaprine Hydrochlo] 10 mg PO BEDTIME 04/21/19 Ibuprofen [Ibu] 800 mg PO TID 04/21/19 Naproxen [EC-Naproxen] 500 mg PO 04/21/19 Norethindrone (Contraceptive) [Deblitane] 0.35 mg PO DAILY 04/21/19 Hydrocortisone (Topical) [Curad Hydrocortisone] 1 % EX BID #1 tube 06/11/19 Oxymetazoline HCl [Afrin Nasal [place]] 0.05 % .ROUTE Q12HR #1 spr 06/18/19 Acetaminophen W/ Codeine [Tylenol W/ CODEINE #3] 1 ea PO TID PRN #12 09/09/19 Clindamycin HCl 300 mg PO TID 7 Days #21 cap 09/09/19 Naproxen [Naprosyn] 500 mg PO BID #10 tab 10/25/19 Polyethylene Glycol 3350 [Miralax] 17 gm PO DAILY 7 Days #20 pckt 07/28/20 Azithromycin 500 mg PO DAILY #5 tab 08/05/20 Famotidine 20 mg PO DAILY #30 tab 08/05/20 Ondansetron Odt [Zofran ODT] 4 mg PO Q8HR PRN #5 tab 08/05/20 predniSONE [Prednisone] 20 mg PO DAILY #5 tab 08/05/20 Additional Instructions: The patient is a 34-year-old female suffering from coronavirus and is at least likely of 4 or 5 days duration. She is to keep her self well-hydrated and maintain a bland diet. We are placing a scopolamine patch on her to help control nausea for the next few days and she will also be written for some Zofran. She will be written for famotidine to help reduce stomach acid. She did receive a liter of IV fluids for mild dehydration. She is going to be placed on prednisone and azithromycin as well based upon her chest x-ray though she is showing no respiratory distress or hypoxia at this time. I do want her to follow-up with her primary care doctor on Saturday for a repeat evaluation. Obviously if the patient is worsening then other therapeutics may be warranted. She did receive first doses of above medications here today. ER warnings are given. She does need to isolate for another 10 days at least.
[2020-08-05 17:57] VITALS: BP 116/68; TEMP 97.3; O2SAT 97
== END 2020-08-05 17:28 | disposition home or self-care (01) ==
LOC: ER 14:47
DX: U07.1 COVID-19 (principal); A08.39 Other viral enteritis; R00.0 Tachycardia, unspecified; E86.0 Dehydration; E66.9 Obesity, unspecified; K21.9 Gastro-esophageal reflux disease without esophagitis; I10 Essential (primary) hypertension; Z79.899 Other long term (current) drug therapy; Z68.44 Body mass index [BMI] 60.0-69.9, adult
CPT/HCPCS: 36415; 74019; 80053; 81001; 82150; 82550; 82553; 83036; 83605; 83690; 83735; 83880; 84443; 84484; 84703; 85025; 87635; 93005; J1100; J7030; J7512; Q0144

== ENCOUNTER → 2020-08-25 | Outpatient (CLI) | payer MEDICARE, MEDICAID | LOC: GMAE 14:30 | PROVIDERS: ATTEND Family Medicine | DX: R10.84 Generalized abdominal pain (principal) ==

== ENCOUNTER 2020-09-10 14:23 | Emergency (ER) | payer MEDICARE, MEDICAID ==
--- NOTE | 2020-09-10 15:05 | ED.PDOC ---
History of Present Illness - General Chief Complaint: Abdominal Pain Stated Complaint: worried she is Time Seen by Provider: 09/10/20 14:49 Source: patient, RN notes reviewed, Vital Signs reviewed Exam Limitations: no limitations - History of Present Illness Initial Comments: Patient is a morbidly obese 35-year-old white female who presents with complaints of some abdominal pain, vague in nature, pain in nature. It is mild in intensity without radiation. It is intermittent. This started yesterday. Patient has had some intermittent spotting also. Patient's last menstrual period was approximately 1 month ago. Patient has had a bilateral tubal ligation. There is no radiation of the pain. Timing/Duration: 24 hours, intermittent Severity: mild Improving Factors: nothing Worsening Factors: nothing Associated Symptoms: other - vaginal spotting Allergies/Adverse Reactions: Allergies NO KNOWN ALLERGY Allergy (Verified 09/10/20 15:13) Home Medications: Ambulatory Orders Loratadine [Claritin] 10 mg PO BEDTIME 01/13/19 Montelukast [Singulair] 10 mg PO DAILY 01/13/19 Oxybutynin Chloride [Oxybutynin Chloride ER] 10 mg PO BEDTIME 01/13/19 Pantoprazole Sodium [Pantoprazole Sodium Dr] 40 mg PO DAILY 01/13/19 Pramipexole Dihydrochloride [Pramipexole Dihydrochlori] 0.5 mg PO BID 01/13/19 Linaclotide [Linzess] 72 mcg PO DAILY 03/26/19 Norethindrone (Contraceptive) [Deblitane] 0.35 mg PO DAILY 03/26/19 Oxcarbazepine 150 mg PO BID 03/26/19 Spironolactone 100 mg PO DAILY 03/26/19 Amoxicillin & Pot Clavulanate [Augmentin Tab] 875 mg PO BID 04/21/19 Cyclobenzaprine HCl [Cyclobenzaprine Hydrochlo] 10 mg PO BEDTIME 04/21/19 Ibuprofen [Ibu] 800 mg PO TID 04/21/19 Naproxen [EC-Naproxen] 500 mg PO 04/21/19 Norethindrone (Contraceptive) [Deblitane] 0.35 mg PO DAILY 04/21/19 Hydrocortisone (Topical) [Curad Hydrocortisone] 1 % EX BID #1 tube 06/11/19 Oxymetazoline HCl [Afrin Nasal [place]] 0.05 % .ROUTE Q12HR #1 spr 06/18/19 Acetaminophen W/ Codeine [Tylenol W/ CODEINE #3] 1 ea PO TID PRN #12 09/09/19 Clindamycin HCl 300 mg PO TID 7 Days #21 cap 09/09/19 Naproxen [Naprosyn] 500 mg PO BID #10 tab 10/25/19 Polyethylene Glycol 3350 [Miralax] 17 gm PO DAILY 7 Days #20 pckt 07/28/20 Azithromycin 500 mg PO DAILY #5 tab 08/05/20 Famotidine 20 mg PO DAILY #30 tab 08/05/20 Ondansetron Odt [Zofran ODT] 4 mg PO Q8HR PRN #5 tab 08/05/20 predniSONE [Prednisone] 20 mg PO DAILY #5 tab 08/05/20 Review of Systems - Review of Systems Constitutional: States: no symptoms reported, see HPI. Denies: chills, fever, malaise, weakness EENTM: States: no symptoms reported. Denies: eye pain, blurred vision, double vision Respiratory: States: no symptoms reported. Denies: cough, short of breath, stridor, wheezing Cardiology: States: no symptoms reported. Denies: chest pain, palpitations, syncope Gastrointestinal/Abdominal: States: see HPI, abdominal pain. Denies: constipation, diarrhea, nausea, vomiting Genitourinary: States: see HPI, discharge - vaginal spotting/bleeding Musculoskeletal: States: no symptoms reported. Denies: back pain, joint pain, joint swelling, neck pain Skin: States: no symptoms reported. Denies: change in color, dryness, lumps, rash Neurological: States: no symptoms reported. Denies: tingling, tremors, weakness Endocrine: States: no symptoms reported. Denies: increased hunger, increased thirst, increased urine Hematologic/Lymphatic: States: no symptoms reported. Denies: blood clots, easy bleeding All other Systems: Reviewed and Negative Past Medical History (General) - Patient Medical History Hx Seizures: No Hx Stroke: No Hx Dementia: No Hx Asthma: No Hx of COPD: No Hx Cardiac Disorders: No Hx Congestive Heart Failure: No Hx Pacemaker: No Hx Hypertension: Yes Hx Thyroid Disease: No Hx Diabetes: No Hx Gastroesophageal Reflux: Yes Hx Renal Disease: No Hx Cancer: No Hx of HIV: No Hx Hepatitis C: No Hx MRSA: No MRSA Source:: Wound - Vaccination History Hx Tetanus, Diphtheria Vaccination: Yes Hx Influenza Vaccination: Yes Hx Pneumococcal Vaccination: No - Social History Hx Tobacco Use: No Hx Chewing Tobacco Use: No Hx Alcohol Use: No Hx Substance Use: No Hx Substance Use Treatment: No Hx Depression: No Hx Physical Abuse: No Hx Emotional Abuse: No Hx Suspected Abuse: No - Female History Hx Last Menstrual Period: 07/29/18 Patient : No Family Medical History - Family History Mother Family History: Unknown Living Status: Unknown Hx Family;Other: adopted Physical Exam - Physical Exam General Appearance: Alert, Comfortable, No apparent distress, Obese, Well Developed, Well Groomed, Well Hydrated, Well Nourished Eye Exam: bilateral normal Ears, Nose, Throat: hearing grossly normal, normal ENT inspection, normal pharynx Neck: non-tender, full range of motion, supple Respiratory: chest non-tender, lungs clear, normal breath sounds, no respiratory distress, no accessory muscle use Cardiovascular/Chest: normal peripheral pulses, no edema, no gallop, no JVD, no murmur, tachycardia Peripheral Pulses: radial,right: 2+, radial,left: 2+ Gastrointestinal/Abdominal: normal bowel sounds, non tender, soft, distended - morbid obesity Back Exam: normal inspection, no CVA tenderness, no vertebral tenderness Extremity: normal range of motion, non-tender, normal inspection 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 I suspect she is beginning to start her menses. Plan on discharge home at this time. I spoke with the patient she voices understanding and agreement. Richie Genao M.D. #[id number] - Results/Orders Results/Orders: Laboratory Results - last 24 hr 09/10/20 15:11 Beta HCG, Quant < 0.6 Vital Signs 09/10/20 09/10/20 14:40 15:04 Temperature 97 F L Pulse Rate [ 103 H 103 H Pulse ox] Respiratory 16 16 Rate Blood Pressure 139/97 [L arm] O2 Sat by Pulse 100 Oximetry Departure - Departure Clinical Impression: Menometrorrhagia, Period pain Time of Disposition: 16:00 Disposition: Discharge to Home or Self Care Condition: Good Departure Forms: ED Discharge - Pt. Copy, Patient Portal Self Enrollment Instructions: DI for Abdominal Pain-Adult, Menstrual Cramps (DC) Diet: resume usual diet Activity: increase activity as tolerated Referrals: CAROL KENT MD [Primary Care Provider] - 1-5 Days Home Medications: Ambulatory Orders Loratadine [Claritin] 10 mg PO BEDTIME 01/13/19 Montelukast [Singulair] 10 mg PO DAILY 01/13/19 Oxybutynin Chloride [Oxybutynin Chloride ER] 10 mg PO BEDTIME 01/13/19 Pantoprazole Sodium [Pantoprazole Sodium Dr] 40 mg PO DAILY 01/13/19 Pramipexole Dihydrochloride [Pramipexole Dihydrochlori] 0.5 mg PO BID 01/13/19 Linaclotide [Linzess] 72 mcg PO DAILY 03/26/19 Norethindrone (Contraceptive) [Deblitane] 0.35 mg PO DAILY 03/26/19 Oxcarbazepine 150 mg PO BID 03/26/19 Spironolactone 100 mg PO DAILY 03/26/19 Amoxicillin & Pot Clavulanate [Augmentin Tab] 875 mg PO BID 04/21/19 Cyclobenzaprine HCl [Cyclobenzaprine Hydrochlo] 10 mg PO BEDTIME 04/21/19 Ibuprofen [Ibu] 800 mg PO TID 04/21/19 Naproxen [EC-Naproxen] 500 mg PO 04/21/19 Norethindrone (Contraceptive) [Deblitane] 0.35 mg PO DAILY 04/21/19 Hydrocortisone (Topical) [Curad Hydrocortisone] 1 % EX BID #1 tube 06/11/19 Oxymetazoline HCl [Afrin Nasal [place]] 0.05 % .ROUTE Q12HR #1 spr 06/18/19 Acetaminophen W/ Codeine [Tylenol W/ CODEINE #3] 1 ea PO TID PRN #12 09/09/19 Clindamycin HCl 300 mg PO TID 7 Days #21 cap 09/09/19 Naproxen [Naprosyn] 500 mg PO BID #10 tab 10/25/19 Polyethylene Glycol 3350 [Miralax] 17 gm PO DAILY 7 Days #20 pckt 07/28/20 Azithromycin 500 mg PO DAILY #5 tab 08/05/20 Famotidine 20 mg PO DAILY #30 tab 08/05/20 Ondansetron Odt [Zofran ODT] 4 mg PO Q8HR PRN #5 tab 08/05/20 predniSONE [Prednisone] 20 mg PO DAILY #5 tab 08/05/20
[2020-09-10 15:13] VITALS: TEMP 97
[2020-09-10 16:28] VITALS: BP 107/72; O2SAT 99
== END 2020-09-10 16:17 | disposition home or self-care (01) ==
LOC: ER 14:23
DX: N92.1 Excessive and frequent menstruation with irregular cycle (principal); N94.6 Dysmenorrhea, unspecified; I10 Essential (primary) hypertension; K21.9 Gastro-esophageal reflux disease without esophagitis; E66.01 Morbid (severe) obesity due to excess calories; Z98.51 Tubal ligation status; Z32.02 Encounter for pregnancy test, result negative; Z79.899 Other long term (current) drug therapy; Z68.44 Body mass index [BMI] 60.0-69.9, adult